=== PATIENT | female | born 1955 | race Caucasian/White ===

== ENCOUNTER 2017-02-06 06:03 | Inpatient (IN) | payer OTHER ==
--- NOTE | 2017-02-01 11:48 | HP ---
PREOPERATIVE HISTORY AND PHYSICAL: DATE OF ADMISSION/SURGERY: 02/06/17 DATE OF OFFICE VISIT/ENCOUNTER: 01/27/17 ATTENDING PHYSICIAN: Roberto Mansfield MD (DICTATED BY MEHREEN CR) PRIMARY CARE PROVIDER: MATT Armstrong PROCEDURE: Left total knee arthroplasty. CHIEF COMPLAINT: Left knee pain. HISTORY OF PRESENT ILLNESS: This is a 61-year-old female with longstanding complaints of left knee pain. X-rays have revealed tricompartmental osteoarthritis. The patient has failed conservative treatment including physical therapy, cortisone injections, and viscosupplementation. After evaluation and recommendations from Dr. Mansfield, the patient has consented to proceed with surgical intervention at this time in the form of a left total knee arthroplasty. PAST MEDICAL HISTORY: 1. Mild COPD. 2. Hypertension. 3. Sleep apnea, the patient does not wear CPAP. 4. Depression. 5. Irritable bowel syndrome. 6. Osteoarthritis. 7. Acid reflux secondary to hiatal hernia. PAST SURGICAL HISTORY: 1. Appendectomy. 2. Left knee arthroscopy. CURRENT MEDICATIONS: 1. Breo. 2. Lexapro. 3. Lisinopril 20 mg daily. 4. Meloxicam 15 mg daily. 5. Pantoprazole sodium 40 mg daily. 6. Vitamin D3 Super Strength 2000 units 1 tab daily. ALLERGIES: PENICILLIN causes hives. FAMILY MEDICAL HISTORY: Cardiac disease and colon cancer. SOCIAL HISTORY: The patient lives alone. She works at [employer] in [place]. She is a former smoker. She quit in October 2015, prior to that she smoked for 45 years a pack and a half per day. She denies recreational drug use. She does admit to alcohol use on rare occasion. REVIEW OF SYSTEMS: General: Negative for fevers, chills, or night sweats. No known anesthesia problems in the past. HEENT: Negative for headache, lightheadedness, or syncopal episodes. Integumentary: Negative for abrasions, lesions, or open wounds. Cardiothoracic: Positive for hypertension, negative for chest pain, palpitations, or edema. Pulmonary: Positive for COPD and shortness of breath with exertion. GI: Positive for diarrhea related to irritable bowel syndrome and acid reflux. : Negative for nocturia, urinary frequency, urgency, history of UTIs, or kidney problems. Musculoskeletal: Positive for current complaint. Negative for chronic or intermittent back pain or history of fractures. Neurological: Positive for depression. Negative for paresthesias, numbness, history of seizures, stroke, or epilepsy. Endocrine: Negative for diabetes or thyroid issues. Hematologic: Negative for easy bruising, anemia, excessive bleeding, or history of DVT. Infectious Disease: Negative for history of MRSA, hepatitis C, or HIV. PHYSICAL EXAMINATION GENERAL: Well-developed, well-nourished, 61-year-old female in no acute distress. VITAL SIGNS: Height 5 feet 3 inches, weight 225 pounds, pulse rate 82, blood pressure 130/82. HEENT: Normocephalic, atraumatic. Pupils are equal, round, and reactive to light and accommodation. Extraocular movements are intact. NECK: Supple. No palpable lymph nodes. Throat is clear. PULMONARY: Lungs are clear to auscultation bilaterally. No wheezes, rales, or rhonchi. CARDIOTHORACIC: Regular rate and rhythm. S1, S2. No murmurs, rubs, or gallops. No edema. ABDOMEN: Positive bowel sounds. Soft, nontender. NEUROLOGIC: Alert and oriented x3. Cranial nerves II through XII are intact. Sensation is intact to light touch. PERIPHERAL VASCULAR: 2+ radial and ulnar pulses. 2+ dorsalis pedis and posterior tibial pulses. MUSCULOSKELETAL: On exam of the left knee, there is a trace joint effusion present, tenderness to palpation at medial and lateral joint lines. Fairly good range of motion. The patient is lacking approximately 5 to 10 degrees of extension and has increased pain past 100 degrees of flexion. There is slight laxity with varus valgus stress typical of osteoarthritis. Stable Laura's and posterior drawer good strength with flexion and extension, and neurovascular function is intact. IMAGING STUDIES: X-rays of the left knee showed tricompartmental osteoarthritic changes with osteophytes and varus deformity. IMPRESSION: Left knee osteoarthritis. PLAN: The patient is scheduled to undergo a left total knee arthroplasty with Dr. Mansfield on 02/06/17. Risks and benefits of surgery were reviewed and the patient consented to proceed. She will return to the office 14 days postop for followup. The patient has received clearance from her primary care provider , MATT Armstrong. Prescriptions for Percocet for postoperative pain, Coumadin for DVT prophylaxis postoperatively, and Colace for constipation were e -scribed to the patient's pharmacy. [place], MEHREEN [id number]/[facility] #: [id number] [facility]PITALQuan
[~2017-02-06 06:03] MED LIST: Buffered Lidocaine 1% SYRIN* 3 ML/SYR SYRINGE INTRADERM ONE; Dexamethasone IV* 4 MG/ML 1 ML (4 MG) IV SLOW PU ONE; Famotidine IV* 10 MG/ML 2 ML (20 mg) IV ONE
[2017-02-06] MEDS ORDERED: Dexamethasone IV* 4 MG/ML 1 ML (4 MG) ONE (06:05)
[2017-02-06] MEDS ORDERED: Famotidine IV* 10 MG/ML 2 ML (20 mg) ONE (06:05)
[2017-02-06] MEDS ORDERED: Clindamycin 900 MG IVPREMIX(* 900 MG/50 ML SDV IV ONE (06:05)
[2017-02-06] MEDS ORDERED: Bupivacaine 0.5% SDV PF* 30 ML VIAL ONE (06:45)
[2017-02-06] MEDS ORDERED: Dexmedetomidine* 200 MCG/2 ML 2 ML VIAL ONE ×2 (06:45→07:06)
[2017-02-06] MEDS ORDERED: HYDROmorphone* 1 MG/ML 1 ML SYR ONE ×3 (06:46→08:51)
[2017-02-06] MEDS ORDERED: fentaNYL* 50 MCG/ML 2 ML VIAL (100 MCG VIAL) ONE ×3 (06:47→11:51)
[2017-02-06] MEDS ORDERED: Midazolam* 1 MG/ML 5 ML VIAL (5 MG) ONE (06:47)
[2017-02-06] MEDS ORDERED: Morphine PF AMP (0.5MG/ML)* 5 MG/10 ML AMP ONE (06:47)
[2017-02-06] MEDS ORDERED: Propofol* 10 MG/ML 20 ML BTL IV PUSH ONE (07:06)
[2017-02-06] MEDS ORDERED: DiMENhydriNATE IV* 50 MG/ML VIAL IV PUSH PRN ×2 (07:15→10:00)
[2017-02-06] MEDS ORDERED: fentaNYL* 50 MCG/ML 2 ML VIAL (100 MCG VIAL) IV PRN (07:15)
[2017-02-06] MEDS ORDERED: PROCHLORPERAZINE INJ 5 MG/ML 2 ML VIAL IV PRN ×2 (07:15→10:00)
[2017-02-06] MEDS ORDERED: Ondansetron INJ* 2 MG/ML VIAL IV PRN ×2 (07:15→10:00)
[2017-02-06] MEDS ORDERED: Meperidine SYRINGE* 50 MG/ML ONE (08:30)
[2017-02-06] MEDS ORDERED: Scopolomine PATCH Remove* 1 NOTE MISC PATCH OFF PRN (10:00)
[2017-02-06] MEDS ORDERED: diPHENhydraMINE IV* 50 MG/ML 1 ml VIAL (BENADRYL) IV PRN ×2 (10:00→10:08)
[2017-02-06] MEDS ORDERED: Nalbuphine* 20 MG/ML 1 ML VIAL IV PRN (10:00)
[2017-02-06] MEDS ORDERED: Scopolamine 1.5 mg* PATCH TRANSDERM PRN (10:00)
[2017-02-06] MEDS ORDERED: Naloxone* 0.4 MG/ML 1 ML VIAL IV PRN (10:00)
[2017-02-06] MEDS ORDERED: Morphine INJ* 2 MG/ML 1 ML SYRINGE IV PRN (10:08)
[2017-02-06] MEDS ORDERED: Magnesium Hydroxide LIQ* 30 ML UDC PO PRN (10:08)
[2017-02-06] MEDS ORDERED: oxyCODONE TAB* 5 MG TAB PO PRN (10:08)
[2017-02-06] MEDS ORDERED: Acetaminophen TAB* 325 MG PO PRN (10:08)
--- NOTE | 2017-02-06 11:09 | RAD ---
Indication: Left total knee replacement. 2 views of left knee demonstrates left knee replacement in satisfactory position. Soft tissue swelling and multiple surgical clips are noted. IMPRESSION: Bipolar left knee replacement in satisfactory position.
[2017-02-06] MEDS: Clindamycin 600 MG IVPREMIX(* 600 MG/50 ML SDV IV SCH (16:16)
[2017-02-06] MEDS ORDERED: Warfarin TAB(*) 10 MG PO ONE (17:00)
[2017-02-06] MEDS: oxyCODONE/Acetamin 5/325 MG* TAB PO PRN ×2 (18:22→21:24)
[2017-02-06] MEDS: FORMOTEROL INH SCH ×2 (19:34→22:17)
[2017-02-06] MEDS: MOMETASONE INH SCH ×2 (19:34→22:17)
[2017-02-06] MEDS: Docusate CAP* 100 MG PO SCH (21:24)
[2017-02-07] MEDS: Clindamycin 600 MG IVPREMIX(* 600 MG/50 ML SDV IV SCH ×2 (00:07→07:50)
[2017-02-07] MEDS: oxyCODONE/Acetamin 5/325 MG* TAB PO PRN ×5 (00:21→22:13)
--- NOTE | 2017-02-07 01:16 | OP ---
DATE OF OPERATION: 02/06/17 - ROOM #341 DATE OF : 55 SURGEON: Roberto Mansfield MD COOK JELLY: DESTIN Tabor ANESTHESIOLOGIST: Arnel Ibarra MD ANESTHESIA: Spinal/regional/sedation. PRE-OP DIAGNOSIS: Osteoarthritis, left knee. POST-OP DIAGNOSIS: Osteoarthritis, left knee. OPERATIVE PROCEDURE: Left total knee arthroplasty. ESTIMATED BLOOD LOSS: 100 cc. COMPLICATIONS: None. HARDWARE: Luis Persona #6 narrow femur, E tibia, 13-mm polyethylene, 32-mm all-polyethylene patellar button. INDICATIONS: Ms. Sinclair is a 61-year-old female who has had several years worth of progressive left knee pain. She had been treated conservatively with anti- inflammatories, physical therapy, and various injections but the knee has become more and more painful and limiting for her. She has significant arthritic changes by x-ray and I discussed with her that a total knee arthroplasty should work well to decrease her pain and improve her function. Risks of surgery such as infection, scar formation, stiffness, DVT, pulmonary embolism, hardware failure, and the need for revision surgery were some of the risks discussed. She had been declared medically optimized and wished to proceed. DESCRIPTION OF PROCEDURE: The patient had a block placed in the holding area and then was brought to the OR. Spinal anaesthesia was introduced and Bailey catheter was placed. Tourniquet was placed over the proximal left thigh and was used during the case. Total tourniquet time would be 74 minutes. Left knee was prepped and then draped. DESTIN Tabor, was present from the very beginning to help hold the leg for placing of the tourniquet, positioning of the patient, approach, placement of the components as well as closure and the case could not have been done without her. Left knee was prepped and then draped. Esmarch was used to exsanguinate the leg and the tourniquet was raised. Midline incision was made beginning just medial to the tibial tubercle and carried about 4 cm above the superior pole of the patella. Incision was carried down through the skin and subcutaneous fat. Small bleeders encountered were ligated using electrocautery. Extensor mechanism was exposed and a sharp parapatellar arthrotomy was made. Quite a bit of clear yellowish joint fluid was encountered. Soft tissues were sharply elevated from the medial side of the tibia and the fat pad were sharply excised. Patella measured 22 mm in thickness and a nice 9 mm cut was taken. Patella was then easily subluxated laterally and the knee was flexed up. Nice exposure of the distal femur was obtained. Step drill was used to open the femoral canal and the intramedullary guide was placed. Guide was placed and adjusted until it appeared parallel with the posterior condyles and while I tried to palpate her epicondyles with her fat, this was not really possible. Distal femoral cutting guide was then pinned into place and the intramedullary guide was removed. It appeared a nice cut would be taken and distal femoral cut was taken. Femur was sized and she sat nicely for a 6. Holes were drilled and a #6 cutting block was placed. With running the drill, through the superior hole, I could feel the drill in the cortex, so cutting block was moved up by 2 mm. Anterior and posterior femoral cuts followed by the chamfer cut were all taken. Attention was turned to the tibia. Step drill was used to open the tibial canal. Intramedullary guide was placed. Outrigger was assembled and adjusted until it appeared it would take 2 mm from the worn medial side. Cutting guide was pinned into place and the proximal tibial cut was taken. It appeared a nice cut was obtained, but when the spacer block was placed on top of the tibia and a drop ning was dropped , the cut was in slight valgus. Re-cutter was then placed and the tibia was recut. She was now in very slight varus, but this was much better than the valgus she was in previously. With the spacer block in; however, it appeared that her rotation on the femur was off. Specifically, with full extension, she sat fairly well but with flexion, she was very loose on the lateral side and tight on the medial side. With the knee in flexion, it was very difficult to get the trial block in to assess. Cutting block was replaced and adjusted so that I moved it up approximately 2 mm on that medial side and this seemed to be better in line with the epicondyles. Anterior femoral cut, posterior cut, and chamfer cuts were retaken. Nothing was taken from the anteromedial and posterolateral aspects of the femur. With the spacer block, she now came out better and the alignment appeared to be quite good. Tibia was sized at 5, which sat perfectly anterior to posterior and medial to lateral and the trial was pinned into place. Proximal tibia was drilled and then punched. Attention was returned to the femur. With the femoral trial, I could now obviously have some wobble and this was placed into firm external rotation and the stud holes were drilled. Spacer was just placed under the medial side and care was taken to make sure I had full contact on the anterolateral aspect of the femur and the box cut was also taken. Trial polyethylene was placed and she came out nicely into full extension, flexed well, and patella tracking appeared perfect. Patella was sized and a 32 sat very nicely. Holes were drilled and trial was snapped into place. Patellar tracking again was perfect without any evidence of instability. Trial instrumentation was removed and the implants were called for. Cement was being prepared. Tibia followed by femur and patella were all cemented into place. Excess cement was removed and cement was allowed to harden. Once the cement had hardened, she was again trialed first with the 12 and then with 13. The 13 came out nicely into full extension just had a little bit of wobble, flexed nice and smoothly as well. She was limited by her body habitus with flexion and not the components. Patella tracking was fine with all of these. Trial polyethylene was removed. The knee was again copiously pulse lavaged and searched for cement, a few small pieces were found. The 13 polyethylene was then snapped into place. She had the same wonderful motion and stability. Knee was again copiously pulse lavaged and the parapatellar arthrotomy was repaired using interrupted #1 Vicryl sutures. Tourniquet was let down. No significant bleeding was encountered. Subcutaneous tissues were reapproximated using 2-0 Vicryl. Wound was again pulse lavaged. Skin was closed using bandar. Sterile dressing and Cryo/Cuff were applied in the OR. The patient was then awaked and stable on transfer to the recovery room. [id number]/[facility] #: [id number] ANNIE
[2017-02-07] MEDS ORDERED: oxyCODONE/Acetamin 5/325 MG* TAB PO PRN (02:01)
[2017-02-07] MEDS ORDERED: Ondansetron INJ* 2 MG/ML VIAL IV PRN (02:01)
[2017-02-07 05:04] LABS: Hematocrit 32 % (35-47); Hemoglobin 10.7 g/dl (12.0-16.0)
[2017-02-07 05:10] LABS: BUN/Creatinine Ratio 15.8 (8-20); EGFR African American 71.7 (>60); EGFR Non-African American 55.7 (>60)
--- NOTE | 2017-02-07 08:04 | PN ---
Progress Note - Progress Note SOAP: Subjective: [Pt was seen sitting up in bed today. She states that late last night the block wore off and that she was unable to sleep due to pain. She states that the pain is an 8 out of 10 at its worst, she states that with percocet the pain is more of a 4 out of 10 and is manageable. She denies any nausea, vomiting, chest pain , calf pain, shortness of breath. Objective: [General: Pt is awake, alert and oriented. No actue distress. Appropriate mood and affect. MSK: LLE: Inspection of the LLE reveals dressing is clean, dry and intact with cryotherapy unit applied. Pt has full doriflexion and planterflexion of the left foot. DP and PT pulses are 2+. Sensation is intact to light touch distal to incision. ] Vital Signs Temp 98.3 F 02/07/17 07:39 Pulse 82 02/07/17 07:39 Resp 18 02/07/17 07:39 BP 99/38 02/07/17 07:39 Pulse Ox 95 02/07/17 07:39 Intake & Output 02/06/17 02/07/17 02/07/17 18:59 06:59 18:59 Intake Total 3395 2165 Output Total 1750 1550 Balance 1645 615 Intake: IV Fluids 2650 1740 900MG CLINDAMYCIN 50 CLINDAMYCIN 50 LR 2600 1690 Oral 745 425 Output: Bailey 1750 1550 Other: # Bowel Movements 0 Hgb 10.7 g/dl (12.0-16.0) L 02/07/17 04:23 Hct 32 % (35-47) L 02/07/17 04:23 INR (Anticoag Therapy) 0.98 (0.89-1.11) 02/07/17 04:23 Sodium 134 mmol/L (133-145) 02/07/17 04:23 Potassium 4.0 mmol/L (3.5-5.0) 02/07/17 04:23 Chloride 99 mmol/L (101-111) L 02/07/17 04:23 Carbon Dioxide 28 mmol/L (22-32) 02/07/17 04:23 Anion Gap 7 mmol/L (2-11) 02/07/17 04:23 BUN 16 mg/dL (6-24) 02/07/17 04:23 Creatinine 1.01 mg/dL (0.51-0.95) H 02/07/17 04:23 Est GFR ( Amer) 71.7 (>60) 02/07/17 04:23 Est GFR (Non-Af Amer) 55.7 (>60) 02/07/17 04:23 BUN/Creatinine Ratio 15.8 (8-20) 02/07/17 04:23 Glucose 113 mg/dL (70-100) H 02/07/17 04:23 Calcium 9.0 mg/dL (8.6-10.3) 02/07/17 04:23 Assessment: [POD1 LTKA ] Plan: [Dose of Warfarin 8mg tonight. To stay ahead of the pain the pt was advised to utilize the oxycodone as needed to help with pain. PT/OT today Continue the Abx for 24 hours. ]
[2017-02-07] MEDS ORDERED: FLUTICASONE FUROATE VILANTEROL INH SCH (09:00)
[2017-02-07] MEDS ORDERED: [UNRECOGNIZED DRUG - OTHER] INH SCH (09:00)
[2017-02-07] MEDS: Cholecalciferol TAB* 1000 UNITS PO SCH (09:07)
[2017-02-07] MEDS: Heparin VIAL(*) 5000 UNITS/ML VIAL (FIVE THOUSAND) SUBCUT SCH ×2 (09:08→20:20)
[2017-02-07] MEDS: CMCS: Pantoprazole TAB (NF) 40 MG TAB PO SCH (09:12)
[2017-02-07] MEDS: CMCS:Escitalopram (NF) 10 MG TAB PO SCH (09:13)
[2017-02-07] MEDS: Docusate CAP* 100 MG PO SCH ×2 (09:49→19:29)
[2017-02-07] MEDS: MOMETASONE INH SCH ×2 (09:50→19:52)
[2017-02-07] MEDS: Lisinopril TAB* 10 MG PO SCH (09:50)
[2017-02-07] MEDS: FORMOTEROL INH SCH ×2 (09:50→19:52)
[2017-02-07] MEDS: oxyCODONE TAB* 5 MG TAB PO PRN ×3 (13:10→20:20)
[2017-02-07] MEDS ORDERED: Warfarin TAB(*) 4 MG PO ONE (17:00)
[2017-02-08] MEDS: oxyCODONE TAB* 5 MG TAB PO PRN ×5 (00:40→21:43)
[2017-02-08] MEDS: oxyCODONE/Acetamin 5/325 MG* TAB PO PRN ×4 (02:12→17:32)
[2017-02-08 06:00] LABS: Hematocrit 31 % (35-47); Hemoglobin 9.9 g/dl (12.0-16.0)
--- NOTE | 2017-02-08 08:41 | PN ---
Progress Note - Progress Note SOAP: Subjective: Pt states she is doing well her pain is controlled. She is doing well with PT. She reports continues calf pain. She denies CP, F/C, SOB, or N/T. VSS overnight Objective: PE- 61 y/o F in NAD lying comfortably in bed LLE- dressing changes, well healing surgical incision, bandar intact, no erythema, purulent discharge or sign of infection. small hematoma on lateral aspect of knee, able to DF/PF ankle, calf soft tender to palpation. +2 DP pulse , sensation intact Vital Signs Temp Pulse Resp BP Pulse Ox 98.2 F 90 18 117/48 94 02/08/17 07:30 02/08/17 07:30 02/08/17 08:00 02/08/17 07:30 02/08/17 08:00 Laboratory Results - last 24 hr 02/08/17 02/08/17 05:31 05:31 Hgb 9.9 L Hct 31 L INR (Anticoag Therapy) 1.70 H Assessment: POD 2 LTKA Plan: Doppler LLE to R/O DVT Warfarin 8 mg tonight. Cont pain management. WBAT LLE- cont PT/OT Possible DC home tomorrow with VNS
[2017-02-08] MEDS: FORMOTEROL INH SCH ×2 (08:52→20:49)
[2017-02-08] MEDS: MOMETASONE INH SCH ×2 (08:52→20:49)
[2017-02-08] MEDS: Docusate CAP* 100 MG PO SCH ×2 (09:00→21:43)
[2017-02-08] MEDS: Lisinopril TAB* 10 MG PO SCH (09:02)
[2017-02-08] MEDS: CMCS:Escitalopram (NF) 10 MG TAB PO SCH (09:02)
[2017-02-08] MEDS: Cholecalciferol TAB* 1000 UNITS PO SCH (09:03)
[2017-02-08] MEDS: Heparin VIAL(*) 5000 UNITS/ML VIAL (FIVE THOUSAND) SUBCUT SCH (09:03)
[2017-02-08] MEDS: CMCS: Pantoprazole TAB (NF) 40 MG TAB PO SCH (09:04)
--- NOTE | 2017-02-08 10:36 | RAD ---
HISTORY: Left lower extremity pain and edema COMPARISONS: None relevant TECHNIQUE: Multiple transverse and longitudinal ultrasound images were obtained of the left lower extremity from the level of the common femoral vein inferiorly through to the infrapopliteal veins using grayscale, color Doppler, and spectral Doppler imaging with and without compression and with augmentation. Comparison images were obtained of the contralateral common femoral vein. FINDINGS: The study is limited by patient body habitus. VEINS: The venous system of the left lower extremity is compressible throughout its course, with normal flow on color Doppler imaging and normal response to augmentation on spectral Doppler imaging. SOFT TISSUES: Unremarkable. OTHER FINDINGS: None. IMPRESSION: NO LEFT LOWER EXTREMITY DEEP VEIN THROMBOSIS
[2017-02-08] MEDS ORDERED: Warfarin TAB(*) 4 MG PO ONE (17:00)
[2017-02-08] MEDS ORDERED: Warfarin TAB(*) 3 MG PO ONE (18:00)
[2017-02-09] MEDS: oxyCODONE TAB* 5 MG TAB PO PRN ×2 (02:24→08:04)
[2017-02-09] MEDS: oxyCODONE/Acetamin 5/325 MG* TAB PO PRN ×2 (05:26→10:26)
[2017-02-09 05:31] LABS: Hematocrit 27 % (35-47); Hemoglobin 8.8 g/dl (12.0-16.0)
[2017-02-09 07:47] VITALS: BP 99/48
[2017-02-09] MEDS: Lisinopril TAB* 10 MG PO SCH (07:48)
[2017-02-09] MEDS: CMCS:Escitalopram (NF) 10 MG TAB PO SCH (08:03)
[2017-02-09] MEDS: Cholecalciferol TAB* 1000 UNITS PO SCH (08:03)
[2017-02-09] MEDS: FORMOTEROL INH SCH (08:04)
[2017-02-09] MEDS: Docusate CAP* 100 MG PO SCH (08:04)
[2017-02-09] MEDS: MOMETASONE INH SCH (08:04)
[2017-02-09] MEDS: CMCS: Pantoprazole TAB (NF) 40 MG TAB PO SCH (08:05)
--- NOTE | 2017-02-09 08:13 | PN ---
Progress Note - Progress Note SOAP: Subjective: 61 y/o female s/p left total knee replacement 02/06/2017. Patient reports feeling well, she denies SOB, chest pain. DVT study neg. VSS overnight, one dip of O2, however recheck WNLs. afebrile. Objective: [General- Well appearing, NAD AOx3 MSK- Incision D/C/I, no drainage noted, bandar in place. PT pulses 2+ b/l, negative homans b/l, + DF/PF equal bilaterally. Moderate ecchymosis around knee. ] Vital Signs Temp 98.3 F 02/09/17 07:06 Pulse 78 02/09/17 07:06 Resp 16 02/09/17 08:04 BP 99/48 02/09/17 07:46 Pulse Ox 100 02/09/17 07:46 Intake & Output 02/08/17 02/09/17 02/09/17 18:59 06:59 18:59 Intake Total 820 1500 Output Total 300 400 Balance 520 1100 Intake: Oral 820 1500 Output: Urine 300 400 Laboratory Results - last 24 hr 02/09/17 02/09/17 05:19 05:19 Hgb 8.8 L Hct 27 L INR (Anticoag Therapy) 2.27 H Assessment: 61 y/o female s/p left total knee replacement 02/06/2017. Plan: - D/C to home today - Follow up with Shyla within 3-4 weeks - Coumadin for DVT prophylaxis - Continue PT/ OT Active Medications Generic Name Dose Route Start Last Admin Trade Name Freq PRN Reason Stop Dose Admin Acetaminophen 650 mg 02/06/17 10:08 Tylenol Tab* PO Q4H PRN FEVER/PAIN Cholecalciferol 5,000 units 02/07/17 09:00 02/09/17 08:03 Vitamin D Tab* PO 5,000 units DAILY MOLINA Administration Diphenhydramine HCl 25 mg 02/06/17 10:08 Benadryl Iv* IV Q6H PRN ITCHING Docusate Sodium 100 mg 02/06/17 21:00 02/09/17 08:04 Colace Cap* PO 100 mg BID MOLINA Administration Escitalopram Oxalate 40 mg 02/07/17 09:00 02/09/17 08:03 Lexapro (Nf) PO 40 mg DAILY MOLINA Administration Lactated Ringer's 1,000 mls @ 100 mls/hr 02/06/17 12:00 02/06/17 23:01 Lactated Ringers 1000 Ml Bag* IV 100 mls/hr PER RATE MOLINA Administration Lisinopril 20 mg 02/07/17 09:00 02/09/17 07:48 Prinivil Tab* PO Not Given DAILY MOLINA Magnesium Hydroxide 30 ml 02/06/17 10:08 Milk Of Magnesia Liq* PO Q6H PRN constipation Mometasone Furoate/Formoterol Fumar 2 puff 02/06/17 21:00 02/09/17 08:04 Dulera 200/5 Mdi* INH 2 puff BID MOLINA Administration Morphine Sulfate 2 mg 02/06/17 10:08 Morphine Inj (Syringe)* IV Q2H PRN PAIN Ondansetron HCl 4 mg 02/07/17 02:01 02/08/17 11:33 Zofran Inj* IV 4 mg Q6H PRN Administration nausea Oxycodone HCl 10 mg 02/07/17 08:05 02/09/17 08:04 Roxycodone Tab* PO 10 mg Q4H PRN Administration PAIN Oxycodone/Acetaminophen 1 tab 02/07/17 02:01 Percocet 5/325 Tab* PO Q3H PRN PAIN - MODERATE Oxycodone/Acetaminophen 2 tab 02/06/17 10:08 02/09/17 05:26 Percocet 5/325 Tab* PO 2 tab Q4H PRN Administration PAIN Pantoprazole Sodium 20 mg 02/07/17 09:00 02/09/17 08:05 Protonix Tab (Nf) PO 20 mg DAILY MOLINA Administration Pharmacy Profile Note 1 note 02/06/17 10:00 Scopolomine Patch Remove* PATCH OFF 02/09/17 10:01 .AFTER 72 HOURS PRN nausea Pharmacy Profile Note 1 note 02/08/17 18:00 02/08/17 17:29 Coumadin Daily Reminder* FOLLOW UP 1 note 1700 MOLINA Administration
--- NOTE | 2017-02-09 22:49 | DS ---
DISCHARGE SUMMARY: DATE OF ADMISSION: 02/06/17 DATE OF DISCHARGE: 02/09/17 ATTENDING SURGEON: Roberto Mansfield MD (DICTATED BY MEHREEN BURNETT) CHIEF COMPLAINT: 1. Left knee osteoarthritis. 2. Mild chronic obstructive pulmonary disease. 3. Hypertension. 4. Sleep apnea. 5. Depression. 6. Irritable bowel syndrome. 7. Osteoarthritis. 8. Acid reflux secondary to hiatal hernia. DISCHARGE DIAGNOSES: 1. Status post left total knee arthroplasty. 2. Mild chronic obstructive pulmonary disease. 3. Hypertension. 4. Mild sleep apnea. 5. Depression. 6. Irritable bowel syndrome. 7. Osteoarthritis. 8. Acid reflux secondary to hiatal hernia. PROCEDURE: Left total knee arthroplasty. CONSULTATIONS: 1. Physical Therapy. 2. Occupational Therapy. BRIEF HISTORY: Ms. Sinclair is a very pleasant 61-year-old female with a longstanding history of osteoarthritis in the left knee, who failed conservative treatment and elected to undergo a left total knee arthroplasty on 02/06/[address] Mansfield. HOSPITAL COURSE: Ms. Sinclair was admitted to [facility], on 02/06/17 , where she underwent a left total knee arthroplasty. Postoperatively, she recovered on the surgical short stay unit. On postoperative day 2, her Bailey was removed and she was voiding on her own without difficulty. She was advanced to a regular diet and her pain was controlled with p.o. Percocet. She was restarted on her home medications. Her labs and vital signs remained stable. She was able to bear weight as tolerated on the left lower extremity. She advanced appropriately with physical therapy and occupational therapy. Her DVT prophylaxis was managed with Lovenox and Coumadin until she reached a therapeutic INR. By postoperative day 3, she was orthopedically and medically stable for discharge to go home with home services. PHYSICAL EXAMINATION: General: Well-appearing, in no acute distress. Alert and oriented x3. On the date of discharge, vital signs: Temperature 98.3, pulse of 78, respirations 16, blood pressure 99/48, pulse oxygenation of 100%. On examination of the left lower extremity, it demonstrated a surgical incision on the anterior aspect of the knee, which was intact with bandar intact. Minimal erythema along the incision site. Moderate ecchymosis surrounding the incision. Positive ankle dorsiflexion and plantar flexion equal bilaterally. 2 + palpable dorsalis pedis pulses. Sensation to light touch intact bilateral lower extremities. Negative Homans' sign bilaterally. LABORATORY DATA: On date of discharge, hemoglobin of 8.8 with a hematocrit of 27 and an INR of 2.27. Radiographs: Postoperative radiograph showed a left total knee arthroplasty and satisfactory replacement. DISCHARGE MEDICATIONS: 1. Cholecalciferol 500 units p.o. daily. 2. Colace 100 mg p.o. b.i.d. 3. Lexapro 40 mg p.o. daily. 4. Fluticasone furoate/vilanterol 1 puff inhalation daily. 5. Lisinopril 20 mg p.o. daily. 6. Protonix 20 mg p.o. daily. 7. Oxycodone/acetaminophen 5/325 mg p.o. daily. 8. Coumadin 2 mg 1 to 3 tablets p.o. as directed by physician at 5 p.m. CONDITION ON DISCHARGE: Stable. DISCHARGE INSTRUCTIONS: Ms. Sinclair is a very pleasant 61-year-old female, postoperative day 3 status post left total knee arthroplasty, which was uncomplicated. She is orthopedically and medically stable for discharge to go home with home services. Her labs and vital signs are stable. She will restart her home medications. She will hold her Coumadin dose tonight and will restart with 2 mg on Monday, Monday, and Monday with an INR check on . She will take Colace 3 times a day for constipation. She will follow up with Dr. Mansfield in approximately 3 to 4 weeks for incision check. She was instructed to go to the ER should she develop chest pain or shortness of breath. Should she develop fever, increasing pain or redness, she is to call the office immediately. MEHREEN BURNETT [id number]/[facility] #: [id number] ANNIE
== END 2017-02-09 10:45 | disposition home health service (06) | DRG 470 ==
LOC: AA 06:03 → SSU 10:09
PROVIDERS: ADMIT Orthopaedic Surgery; ATTEND Orthopaedic Surgery
PROC: 0SRD0J9 Replacement of Left Knee Joint with Synthetic Substitute, Cemented, Open Approach (ICD-10-PCS; principal; 2017-02-06 07:30)
DX: M17.12 Unilateral primary osteoarthritis, left knee (principal); Z68.41 Body mass index [BMI] 40.0-44.9, adult; I10 Essential (primary) hypertension; G47.33 Obstructive sleep apnea (adult) (pediatric); F41.9 Anxiety disorder, unspecified; E78.2 Mixed hyperlipidemia; J44.9 Chronic obstructive pulmonary disease, unspecified; E66.01 Morbid (severe) obesity due to excess calories; K58.9 Irritable bowel syndrome, unspecified; K21.9 Gastro-esophageal reflux disease without esophagitis; K44.9 Diaphragmatic hernia without obstruction or gangrene; F32.9 Major depressive disorder, single episode, unspecified; Z88.0 Allergy status to penicillin; Z80.0 Family history of malignant neoplasm of digestive organs; Z82.49 Family history of ischemic heart disease and other diseases of the circulatory system; Z87.891 Personal history of nicotine dependence
CPT/HCPCS: 36415; 80048; 85014; 85018; 85610; 88305; 88311; 94640; 94760; A9270-GY; J1100; J1170; J1644; J2250; J2405; J2704; J3010

== ENCOUNTER 2018-10-22 08:19 | Inpatient (IN) | payer OTHER ==
--- NOTE | 2018-10-19 15:59 | HP ---
H&P (Free Text) History and Physical: [facility] SOLOMON DUNBAR M.D. [address] [place] [phone] Date of Visit: October 17, 2018 Patient Name: Kaelyn Sinclair : 1955 Gender: female Age: 63 years Primary Care Physician: Maribel Garibay Reason for Visit: H and P for Right TKR, 10/22/2018 HPI: Ms. Sinclair is a very pleasant 63 year old female known to Dr. Israel practice after undergoing a Left total knee replacement, uncomplicated, in 02/2017. The patient since has developed pain in her right knee which was not helped with conservative measures such as NSAIDs, therapy, or rest, and has elected to undergo a right total knee arthroplasty with Dr. Dunbar on 10/22/2018. She has been cleared by her primary physician. Meds Prior to Visit: Symbicort 160-4.5 mcg/Act 2 puff twice a day Spiriva Respimat 2.5 mcg/Act 2 puffs every day Vitamin D3 Super Strength 2000 Unit 1 by mouth every day Lisinopril 20 mg 1 by mouth every day Citalopram Hydrobromide 40 mg take one tablet by mouth every day Trazodone HCL 50 mg take 1- 2 tablets by mouth AT bedtime Allergies: Penicillin Aleve Problem List: Disorder of shoulder Disorder of bursa of shoulder region Enthesopathy of knee Arthroplasty of knee Meralgia paresthetica of left leg Bicipital tenosynovitis Localized, primary osteoarthritis Sprain of right rotator cuff capsule, subsequent encounter Degenerative joint disease of shoulder region Joint derangement Strain of rotator cuff capsule Date: 10/17/2018 Was the patient queried about smoking behavior? Yes No Does the patient currently smoke? Smoking: Patient is a former smoker - Quit 10/2015. Denies ETOH, tobacco use. Lives alone. Family Medical History: Colon Cancer, heart disease Review of Systems: Negative for chest pain, shortness of breath, GI symptoms, urinary complaints, headache, seizure, stroke, difficulty with wound healing, blood clots, bleeding disorders, thyroid disease, DM, other aches/ pains, fever, chills, weight loss, weight gain, abdominal pains, or lightheadedness. Positive for knee pain. No difficulty with anesthesia. Vitals: Ht: 63" Wt: 241lb BP: 130/76 Resp: 18 Pain Level: 4 BMI: 42.7 EXAM: General- well appearing, NAD, alert and oriented HEENT- normocephalic, atraumatic, trachea midline. Lungs- clear to ausculation bilaterally, no C/R/W Cardiac- RRR, no M.G.R Abdomen- Soft, non-tender, non-distended, no CVA tenderness b/l MSK- R knee- ROM 3-130, tender to palpation over lateral and medial joint lines , worse over medial, mild effusion noted, + crepitus with motions, no instability with valgus or varus stressing. Vascular- PT pulses 2+ b/l Neuro- SITLT b/l LE distal to knees. + DF/PF ASSESSMENT: Right knee endstage osteoarthritis PLAN: 1) Replacement planned 10/22/2018 2) Follow up 1 month post-op 3) Possible rehabilitation post-op 4) Cleared by PCP, labs WNL's 5) Reviewed risks and benefits 6) Shoulder steroid injection at first pre-op 7) post-op medications given at visit
[~2018-10-22 08:19] MED LIST changes: +Buffered Lidocaine 1% SYRIN* 1 ML/SYRINGE INTRADERM ONE; -Buffered Lidocaine 1% SYRIN* 3 ML/SYR SYRINGE INTRADERM ONE; +Lactated Ringers 1000 ML Bag* 1,000 ML IV SCH
--- OUTSIDE RECORDS SUMMARY | 2018-10-22 08:24 | XMS REPORT | Continuity of Care Document ---
:1955 External Reference #:[id number] Author Name Sammy Ley Care Team Providers Name Role Phone Emily Mcknight F.N.P. Primary Care Physician Unavailable Payers Type Date Identification Numbers Payment Provider Subscriber Policy Number: [id number] [employer] Andrew Sinclair Group Number: [id number] [address] PayID: [id number] [place] [id number] Advance Directives Description No Information Available Problems Date Description Provider Status Onset: 06/26/2015 Strain of rotator cuff capsule Roberto Mansfield M.D. Active Onset: 06/26/2015 Joint derangement Roberto Mansfield M.D. Active Onset: 06/26/2015 Degenerative joint disease of Roberto Mansfield M.D. Active shoulder region Onset: 07/24/2015 Sprain of right rotator cuff capsule, MAYRA Bowen Active subsequent encounter Onset: 01/20/2016 Localized, primary osteoarthritis Roberto Mansfield M.D. Active Onset: 11/09/2016 Bicipital tenosynovitis Roberto Mansfield M.D. Active Onset: 11/09/2016 Meralgia paresthetica of left leg Roberto Mansfield M.D. Active Onset: 07/12/2017 Disorder of shoulder Roberto Mansfield M.D. Active Onset: 06/07/2017 Disorder of bursa of shoulder region MEHREEN Thompson Active Onset: 06/07/2017 Enthesopathy of knee Codie Wellcally PA Active Onset: 03/01/2017 Arthroplasty of knee Codie Walsh PA Active Family History Date Family Member(s) Problem(s) Comments General Heart Disease General Cancer Siblings 2 Social History Type Date Description Comments Sex Unknown Marital Status Single Lives With Alone Occupation Retired Accounting ETOH Use Denies alcohol use Tobacco Use Start: Unknown End: Patient is a former smoker Quit 10/2015 Unknown Recreational Drug Use Denies Drug Use Smoking Status Reviewed: 10/17/18 Patient is a former smoker Quit 10/2015 Exercise Type/Frequency Does not exercise Allergies, Adverse Reactions, Alerts Date Description Reaction Status Severity Comments 06/24/2015 Penicillin Active 10/10/2018 Love Mcallister Active Moderate Medications Medication Date Status Form Strength Qnty SIG Indications Ordering Provider Oxycodone HCL 10/17 Active Capsules 5mg 60cap one to two M104.18 s tablets every Shyla, 4-6 hours as M.D. needed for pain Colace 10/17 Active Capsules 100mg 60cap one tablet M104.18 s twice daily Shyla, post-operativ M.D. hyacinth Coumadin 10/17 Active Tablets 2mg 60tab 1-3 tablets M104.18 s orally as Shyla, prescribed M.D. post-operativ hyacinth at 5pm Symbicort 10/09 Active Aerosol 160-4.5mc 2 puff twice g/Act a day Spiriva Respimat 10/09 Active Aerosol 2.5mcg/Ac 2 puffs every Unknown t day Vitamin D3 Super Active Tablets 2000Unit 1 by mouth Unknown Strength /0000 every day Lisinopril Active Tablets 20mg 1 by mouth Unknown /0000 every day Citalopram Active Tablets 40mg Take One Unknown Hydrobromide /0000 Tablet By Mouth Every Day Trazodone HCL Active Tablets 50mg Take 1- 2 Unknown /0000 Tablets By Mouth AT Bedtime Percocet 01/27 Hx Tablets 5-325mg 60tab 1 -2 tabs by s mouth every 6 Shyla, - hours as M.D. 10/09 needed pain Coumadin 01/27 Hx Tablets 2mg 45tab take 1-3 tabs s at dinnertime Shyla, - as directed M.D. 07/13 by vns - not take this medication prior to surgery Colace 01/27 Hx Capsules 100mg 90cap 1 tab by s mouth up to Shyla, - three times a M.D. 09/04 day as needed constipation Meloxicam 09/02 Hx Tablets 15mg 30tab 1 tab po s daily Kamala Mansfield.DGisele 09/04 Meloxicam 06/26 Hx Tablets 15mg 30tab take one s tablet by Shyla, - mouth every M.D. 11/11 day as needed /2015 Prednisone Hx Tablets 20mg 20mg daily Unknown /0000 - 05/26 Ergocalciferol Hx Capsules [id number] 1 tab by Unknown /0000 mouth every - week 05/26 Cyclobenzaprine Hx Tablets 5mg 1 tablet by Unknown HCL /0000 mouth three - times a day 05/26 as needed /2014 Percocet Hx Tablets 5-325mg 1-2 by mouth Unknown /0000 every 4 to 6 - hours as 05/26 needed pain Chantix Hx Tablets 1mg 1 tab by Unknown Continuing Month /0000 mouth twice a Jose - day x 11 Escitalopram Hx Tablets 20mg 1 by mouth Unknown Oxalate /0000 every day - 01/08 Chantix 00 Hx Tablets 1mg take one Unknown /0000 tablet by - mouth twice a /2016 Pantoprazole Hx Tablets 40mg 1 by mouth Unknown Sodium /0000 DR every day - 10/09 Lexapro 00 Hx Unknown /0000 - 06/06 Mobic 00/00 Hx Unknown /0000 - 07/13 Medications Administered in Office Medication Date Status Form Strength Qnty SIG Indications Ordering Provider Depomedrol Administered Injection Roberto 40MG Kenneth Mansfield M.D. Depomedrol Administered Injection Roberto 40MG 017 Nicole Mansfield Celestone 3 Administered Injection Roberto mg and 3mg Kenneth Mansfield M.D. Hyaluron Or Administered Injection Lissa Derivative,Or yris Riojas,For ANP-C Intra-Articul ar Inj Per Dose Hyaluron Or Administered Injection Lissa Derivative,Or 016 yris Graves,For ANP-C Intra-Articul ar Inj Per Dose Hyaluron Or Administered Injection Lissa Derivative,Or 016 yris Graves,For ANP-C Intra-Articul ar Inj Per Dose Hyaluron Or Administered Injection Lissa Derivative,Or 016 yris Graves,For ANP-C Intra-Articul ar Inj Per Dose Hyaluron Or Administered Injection Jessie Derivative,Or 016 NEYDA Teresa thovisc,For Intra-Articul ar Inj Per Dose Hyaluron Or Administered Injection Jessie Derivative,Or 016 NEYDA Teresa thovisc,For Intra-Articul ar Inj Per Dose Depomedrol Administered Injection Lissa 80MG 015 RILEY Graves Immunizations Description No Information Available Vital Signs Date Vital Result Comment 10/17/2018 2:59pm Height 63 inches 5'3" Weight 241.00 lb BP Systolic 130 mmHg BP Diastolic 76 mmHg Respiratory Rate 18 /min Pain Level 4 BMI (Body Mass Index) 42.7 kg/m2 10/10/2018 2:51pm Height 63 inches 5'3" Weight 241.75 lb with shoes Heart Rate 60 /min regular, radial BP Systolic Sitting 145 mmHg lt arm BP Diastolic Sitting 80 mmHg lt arm BMI (Body Mass Index) 42.8 kg/m2 09/19/2018 2:01pm Height 63 inches 5'3" Weight 240.00 lb BP Systolic Sitting 126 mmHg lg BP Diastolic Sitting 80 mmHg lg Pain Level 6 BMI (Body Mass Index) 42.5 kg/m2 09/05/2018 1:04pm Height 63 inches 5'3" Heart Rate 68 /min BP Systolic 122 mmHg BP Diastolic 68 mmHg Body Temperature 97.3 F Pain Level 9 07/12/2017 3:45pm Height 63 inches 5'3" Weight 225.00 lb BP Systolic 124 mmHg BP Diastolic 74 mmHg Respiratory Rate 18 /min Pain Level 3 BMI (Body Mass Index) 39.9 kg/m2 06/07/2017 1:57pm Height 63 inches 5'3" Weight 225.00 lb BP Systolic 128 mmHg BP Diastolic 88 mmHg Respiratory Rate 20 /min Body Temperature 97.3 F Pain Level 5 BMI (Body Mass Index) 39.9 kg/m2 05/03/2017 3:42pm Height 63 inches 5'3" Weight 225.00 lb BP Systolic 128 mmHg BP Diastolic 80 mmHg Body Temperature 98.0 F Pain Level 0 BMI (Body Mass Index) 39.9 kg/m2 03/01/2017 12:53pm Height 63 inches 5'3" Weight 225.00 lb Heart Rate 80 /min BP Systolic 158 mmHg BP Diastolic 83 mmHg Body Temperature 97.9 F BMI (Body Mass Index) 39.9 kg/m2 01/27/2017 10:21am Height 63 inches 5'3" Weight 225.00 lb Heart Rate 82 /min BP Systolic 130 mmHg BP Diastolic 82 mmHg Respiratory Rate 14 /min Body Temperature 97.2 F Pain Level 4 BMI (Body Mass Index) 39.9 kg/m2 11/09/2016 4:07pm Height 63 inches 5'3" Weight 225.00 lb per pt Heart Rate 64 /min BP Systolic Sitting 128 mmHg BP Diastolic Sitting 80 mmHg Respiratory Rate 16 /min Pain Level 8 BMI (Body Mass Index) 39.9 kg/m2 05/19/2016 4:04pm Height 63 inches 5'3" Weight 225.00 lb Pain Level 6 BMI (Body Mass Index) 39.9 kg/m2 05/11/2016 8:26am Height 63 inches 5'3" Weight 225.00 lb Pain Level 0 BMI (Body Mass Index) 39.9 kg/m2 04/29/2016 2:32pm Height 63 inches 5'3" Weight 225.00 lb Pain Level 4 BMI (Body Mass Index) 39.9 kg/m2 04/21/2016 8:12am Height 63 inches 5'3" Weight 225.00 lb Respiratory Rate 18 /min Pain Level 5 BMI (Body Mass Index) 39.9 kg/m2 03/02/2016 9:26am Height 63 inches 5'3" Weight 225.00 lb Heart Rate 64 /min BP Systolic Sitting 136 mmHg BP Diastolic Sitting 72 mmHg Respiratory Rate 16 /min Pain Level 3 BMI (Body Mass Index) 39.9 kg/m2 01/20/2016 9:22am Height 63 inches 5'3" Weight 223.00 lb Heart Rate 63 /min BP Systolic 163 mmHg BP Diastolic 81 mmHg BMI (Body Mass Index) 39.5 kg/m2 11/12/2015 2:00pm Height 63 inches 5'3" Weight 213.00 lb Respiratory Rate 16 /min Pain Level 3 BMI (Body Mass Index) 37.7 kg/m2 09/02/2015 9:36am Height 63 inches 5'3" Weight 213.00 lb BMI (Body Mass Index) 37.7 kg/m2 07/24/2015 9:24am Height 63 inches 5'3" Weight 213.00 lb Respiratory Rate 18 /min Pain Level 5 BMI (Body Mass Index) 37.7 kg/m2 06/24/2015 11:41am Weight 213.00 lb Results Test Date Facility Test Result H/L Range Note Urinalysis Profile 10/12/2018 [facility] Urine Color Yellow [address] [place] [address] [phone] Urine Appearance Clear Urine Specific [place] 1.018 N 1.010-1.030 Urine pH 5.0 N 5-9 Urine Urobilinogen Negative Negative Urine Ketones Negative Negative Urine Protein Negative Negative Urine Leukocytes Negative Negative Urine Blood Negative Negative Urine Nitrite Negative Negative Urine Bilirubin Negative Negative Urine Glucose Negative Negative Inr/Protime 10/12/2018 [facility] Inr 0.97 N 0.77-1.02 [address] [place] [address] [phone] CBC Auto Diff 10/12/2018 [facility] White Blood 6.0 10^3/uL N 3.5-10.[address] [place] [address] [phone] Red Blood Count 4.51 10^6/uL N 4.00-5.40 Hemoglobin 13.0 g/dL N 12.0-16.0 Hematocrit 40 % N 35-47 Mean Corpuscular Volume 88 fL N 80-97 Mean Corpuscular Hemoglobin 29 pg N 27-31 Mean Corpuscular HGB Conc 33 g/dL N 31-36 Red Cell Distribution Width 14 % N 10.5-15 Platelet Count 204 10^3/uL N 150-450 Mean Platelet Volume 9.1 fL N 7.4-10.4 Abs Neutrophils 4.4 10^3/uL N 1.5-7.7 Abs Lymphocytes 1.2 10^3/uL N 1.0-4.8 Abs Monocytes 0.3 10^3/uL N 0-0.8 Abs Eosinophils 0.1 10^3/uL N 0-0.6 Abs Basophils 0 10^3/uL N 0-0.2 Abs Nucleated RBC 0 10^3/uL Granulocyte % 73.9 % Lymphocyte % 19.3 % Monocyte % 4.8 % Eosinophil % 1.6 % Basophil % 0.4 % Nucleated Red Blood Cells % 0.1 Type & Screen 10/12/2018 [facility] Patient Blood Type O Negative [address] [place] [address] [phone] Antibody Screen NEGATIVE Comp Metabolic Panel 10/12/2018 [facility] Sodium 140 mmol/L N 135-[address] [place] [address] [phone] Potassium 4.2 mmol/L N 3.5-5.0 Chloride 103 mmol/L N 101-111 Co2 Carbon Dioxide 30 mmol/L N 22-32 Anion Gap 7 mmol/L N 2-11 Glucose 93 mg/dL N 70-100 Blood Urea Nitrogen 15 mg/dL N 6-24 Creatinine 1.07 mg/dL High 0.51-0.95 BUN/Creatinine Ratio 14.0 N 8-20 Calcium 9.3 mg/dL N 8.6-10.3 Total Protein 6.7 g/dL N 6.4-8.9 Albumin 4.1 g/dL N 3.2-5.2 Globulin 2.6 g/dL N 2-4 Albumin/Globulin Ratio 1.6 N 1-3 Total Bilirubin 0.30 mg/dL N 0.2-1.0 Alkaline Phosphatase 80 U/L N 34-104 Alt 15 U/L N 7-52 Ast 16 U/L N 13-39 Egfr Non- 51.8 >60 Egfr 62.7 >60 1 Urine Culture And 10/12/2018 [facility] Urine SEE RESULT [address] [place] [address] [phone] Inr/Protime 03/02/2017 [facility] Inr 1.72 High 0.89- [address] [place] [address] [phone] Inr/Protime 02/27/2017 [facility] Inr 1.95 High 0.89- [address] [place] [address] [phone] Urinalysis Profile 01/27/2017 [facility] Urine Color Yellow N [address] [place] [address] [phone] Urine Appearance Cloudy N Urine Specific [place] 1.020 N 1.010-1.030 Urine pH 6.0 N 5-9 Urine Urobilinogen Negative N Negative Urine Ketones Negative N Negative Urine Protein Negative N Negative Urine Leukocytes Trace Abnormal Negative Urine Blood Negative N Negative Urine Nitrite Negative N Negative Urine Bilirubin Negative N Negative Urine Glucose Negative N Negative Urine White Blood Cell Trace(0-5/hpf) N Absent Urine Red Blood Cell Absent N Absent Urine Bacteria 1+ Abnormal Absent Urine Squamous Epithelial Cell Present Abnormal Absent CBC No Diff 01/27/2017 [facility] White Blood 6.4 10^3/uL N 3.5-10.[address] [place] [address] [phone] Red Blood Count 4.96 10^6/uL N 4.0-5.4 Hemoglobin 14.0 g/dL N 12.0-16.0 Hematocrit 43 % N 35-47 Mean Corpuscular Volume 86 fL N 80-97 Mean Corpuscular Hemoglobin 28 pg N 27-31 Mean Corpuscular HGB Conc 33 g/dL N 31-36 Red Cell Distribution Width 15 % N 10.5-15 Platelet Count 217 10^3/uL N 150-450 Mean Platelet Volume 9 um3 N 7.4-10.4 Inr/Protime 01/27/2017 [facility] Inr 0.96 N 0.89-1.[address] [place] [address] [phone] Laboratory test 01/27/2017 [facility] Partial 31.8 seconds N 26.0-36.3 [address] [place] [address] PTT [phone] Type & Screen 01/27/2017 [facility] Patient O Negative N [address] [place] [address] [phone] Antibody Screen NEGATIVE N Comp Metabolic Panel 01/27/2017 [facility] Sodium 136 mmol/L N 133-[address] [place] [address] [phone] Potassium 3.8 mmol/L N 3.5-5.0 Chloride 98 mmol/L Low 101-111 Co2 Carbon Dioxide 29 mmol/L N 22-32 Anion Gap 9 mmol/L N 2-11 Glucose 91 mg/dL N 70-100 Blood Urea Nitrogen 17 mg/dL N 6-24 Creatinine 1.16 mg/dL High 0.51-0.95 BUN/Creatinine Ratio 14.7 N 8-20 Calcium 9.5 mg/dL N 8.6-10.3 Total Protein 7.5 g/dL N 6.4-8.9 Albumin 4.4 g/dL N 3.2-5.2 Globulin 3.1 g/dL N 2-4 Albumin/Globulin Ratio 1.4 N 1-3 Total Bilirubin 0.60 mg/dL N 0.2-1.0 Alkaline Phosphatase 85 U/L N 34-104 Alt 29 U/L N 7-52 Ast 26 U/L N 13-39 Egfr Non- 47.5 N >60 Egfr 61.1 N >60 7 Urine Culture And 01/27/2017 [facility] Urine Culture SEE RESULT [address] [place] [address] [phone] 1 Because ethnic data is not always readily available, this report includes an eGFR for both -Americans and non- Americans. The National Kidney Disease Education Program (NKDEP) does not endorse the use of the MDRD equation for patients that are not between the ages of 18 and 70, are , have extremes of body size, muscle mass, or nutritional status, or are non- or non-. According to the National Kidney Foundation, irrespective of diagnosis, the stage of the disease is based on the level of kidney function: Stage Description GFR(mL/min/1.73 m(2)) 1 Kidney damage with normal or decreased GFR 90 2 Kidney damage with mild decrease in GFR 60-89 3 Moderate decrease in GFR 30-59 4 Severe decrease in GFR 15-29 5 Kidney failure <15 (or dialysis) 2 SEE RESULT BELOW Name: ANDREW SINCLAIR : [address]: Roberto Mansfield MD Acct: [id number] Unit: [id number] AGE: 63 Location: PAT Re10/12/18 SEX: F Status: REG REF SPEC: [id number] CLARICE: 10/12/18-[address]: Roberto Mansfield MD REQ: [id number] RECD: 10/12/18 STATUS: KENDAL HIGGINBOTHAM DR: Emily Mcknight POST PRODUCTION ASSISTANT _ SOURCE: URINE SPDESC: ORDERED: Urine Culture QUERIES: Urine Source: Clean Catch Procedure Result Reported Site Urine Culture Final 10/13/18- 1630 ML No Growth (<1,000 CFU/mL) * ML - Main Lab . END OF REPORT DEPARTMENT OF PATHOLOGY, [address] [place] [address] Marcus Swann M.D. Director [facility] # [id number] FAX 4 PLEASE CALL STAT RESULT TO [phone] PLEASE FAX STAT RESULTS TO 5 SD [id number] 6 SD [id number] 7 Because ethnic data is not always readily available, this report includes an eGFR for both -Americans and non- Americans. The National Kidney Disease Education Program (NKDEP) does not endorse the use of the MDRD equation for patients that are not between the ages of 18 and 70, are , have extremes of body size, muscle mass, or nutritional status, or are non- or non-. According to the National Kidney Foundation, irrespective of diagnosis, the stage of the disease is based on the level of kidney function: Stage Description GFR(mL/min/1.73 m(2)) 1 Kidney damage with normal or decreased GFR 90 2 Kidney damage with mild decrease in GFR 60-89 3 Moderate decrease in GFR 30-59 4 Severe decrease in GFR 15-29 5 Kidney failure <15 (or dialysis) 8 SEE RESULT BELOW Name: ANDREW SINCLAIR : [address]: Roberto Mansfield MD Acct: [id number] Unit: [id number] AGE: 61 Location: [facility] Re01/27/17 SEX: F Status: REG REF SPEC: [id number] CLARICE: 01/27/17-[address] [facility] [address]: Roberto Mansfield MD REQ: [id number] RECD: 01/27/17134 STATUS: COMP _ SOURCE: URINE SPDESC: ORDERED: Urine Culture COMMENTS: [id number] [id number] QUERIES: Urine Source: Clean Catch Procedure Result Reported Site Urine Culture Final 01/28/17- 1507 ML No growth of clinically significant organisms * ML - MAIN LAB (PSC1) . END OF REPORT * ML=Testing performed at Main Lab DEPARTMENT OF PATHOLOGY, [address] [place] [address] Marcus Swann M.D. Director [facility] # [id number] Procedures Date Code Description Status 07/12/2017 Inject/Drain Joint/Bursa Major W/O US Completed 07/12/201760163 Inject/Drain Joint/Bursa Major W/O US Completed 02/06/2017 17645 TKR Total Knee Replacement Completed 02/06/201726248 TKR Total Knee Replacement Completed 02/06/201755527 TKR Total Knee Replacement Completed 11/09/201640131 Inject Tendon Sheath Or Ligament Aponeurosis Eg Plantar Completed Fascia 05/11/2016 Inject/Drain Joint/Bursa Major W/O US Completed 04/29/2016 Inject/Drain Joint/Bursa Major W/O US Completed 04/21/2016 Inject/Drain Joint/Bursa Major W/O US Completed 07/24/2015 Inject/Drain Joint/Bursa Major W/O US Completed Encounters Type Date Location Provider Dx Diagnosis Office Visit 09/19/2018 Spine Navigator Yamileth Hanh, M51.37 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 knee Office Visit 06/07/2017 Orthopedic Codie M70.51 Other bursitis of 2:00p Services Of MEHREEN Walsh knee, right knee C.M.A. M75.51 Bursitis of right shoulder Office Visit 11/09/2016 Daysi Mejia M17.0 Bilateral primary 4:00p Services Of Nicole Mansfield osteoarthritis of C.M.A. knee M75.21 Bicipital tendinitis, right shoulder G57.12 Meralgia paresthetica, left lower limb Office Visit 05/19/2016 Orthopedic Lissa M17.0 Bilateral primary 4:00p Services Of RILEY Graves osteoarthritis of C.M.A. knee Office Visit 03/02/2016 Orthopedic Lissa Jaramillo7.11 Unilateral primary 9:20a Services Of RILEY Graves osteoarthritis, C.M.A. right knee M17.12 Unilateral primary osteoarthritis, left knee Office Visit 01/20/2016 Daysi Mejia M17.0 Bilateral primary 9:30a Services Of Nicole Mansfield osteoarthritis of C.M.A. knee Office Visit 11/12/2015 Orthopedic Roberto S43.421D Sprain of right 2:00p Services Of Nicole Mansfield rotator cuff C.M.A. capsule, subsequent encounter M19.011 Primary osteoarthritis, right shoulder Office Visit 09/02/2015 9:40a Orthopedic Sarai S43.421D Sprain of right Services Of MELANI Gregory rotator cuff C.M.A. capsule, subsequent encounter Office Visit 06/26/2015 9:30a Orthopedic Roberto 840.4 Sprains & Services Of Nicole Mansfield Strains Rotator C.M.A. Cuff (Capsule) 718.88 Derangement Joint Other Not Elsewhere Class Spec Sites 715.91 Osteoarthrosis Unspec Genlzd Or Localized Shoulder 840.6 Sprains & Strains Supraspinatus (Muscle)(Tendon) 726.12 Tenosynovitis Bicipital Plan of Treatment Future Appointment(s):11/23/2018 11:15 am - Roberto Mansfield M.D. at [facility] AT Tlvguwqk90/13/2019 2:00 pm - Charlotte Dee MD at [facility] Tappieidvb37/14/2019 10:45 am - MEHREEN Banks at [facility]10/22/2018 10:45 am - Roberto Mansfield M.D. at [facility]10/17/2018 - Roberto Mansfield M.D.M17.11 Unilateral primary osteoarthritis , right kneeNew Medication:Oxycodone HCL 5 mg - one to two tablets every 4-6 hours as needed for painColace 100 mg - one tablet twice daily post- operativelyCoumadin 2 mg - 1-3 tablets orally as prescribed post-operatively at 5pmFollow up:Follow up: 1 month post-op shoulder injection at next visit
--- OUTSIDE RECORDS SUMMARY | 2018-10-22 08:24 | XMS REPORT | Continuity of Care Document ---
:1955 External Reference #:[id number] Author Name Gracie Bedoya Care Team Providers Name Role Phone Dayan Esquivel FNP Care Team Information Risk Prevention Engineer Unavailable Emily Mcknight F.N.P. Primary Care Physician Unavailable Payers Type Date Identification Numbers Payment Provider Subscriber Policy Number: [id number] [employer] Andrew Sinclair Group Number: [id number] [address] PayID: [id number] [place] [address] Advance Directives Description No Information Available Problems [...] 06/07/2017 Disorder of bursa of shoulder region Codie Wellcally, PA Active Onset: 06/07/2017 Enthesopathy of knee Codie Wellings, PA Active Onset: 03/01/2017 Arthroplasty of knee Codie Wellings, PA Active Family History Date Family Member(s) Problem(s) Comments General Heart Disease General Cancer Siblings 2 Social History Type Date Description Comments Sex Unknown Marital Status Single Lives With Alone Occupation Retired Accounting ETOH Use Denies alcohol use Tobacco Use Start: Unknown End: Patient is a former Quit 6 weeks Unknown smoker Recreational Drug Use Denies Drug Use Smoking Status Reviewed: 09/19/18 Patient is a former Quit 6 weeks smoker Exercise Type/Frequency Does not exercise Allergies, Adverse Reactions, Alerts Date Description Reaction Status Severity Comments 06/24/2015 Penicillin Active Medications Medication Date Status Form Strength Qnty SIG Indications Ordering Provider Percocet 01/27 Active Tablets 5-325mg 60tab 1 -2 tabs by s mouth every 6 Shyla, hours as M.D. needed pain Vitamin D3 Super Active Tablets 2000Unit 1 by mouth Unknown Strength /0000 every day Lisinopril Active Tablets 20mg 1 by mouth Unknown /0000 every day Pantoprazole Active Tablets 40mg 1 by mouth Unknown Sodium /0000 DR every day Citalopram Active Tablets 40mg Take One Unknown Hydrobromide /0000 Tablet By Mouth Every Day Trazodone HCL Active Tablets 50mg Take 1 2 Unknown /0000 Tablets By Mouth AT Bedtime Coumadin 01/27 Hx Tablets 2mg 45tab take 1-3 tabs s at dinnertime Shyla, - as directed M.D. 07/13 by vns - not take this medication prior to surgery Colace 01/27 Hx Capsules 100mg 90cap 1 tab by s mouth up to Shyla, - three times a M.D. 09/04 day as needed constipation Meloxicam 09/02 Hx Tablets 15mg 30tab 1 tab po s daily Shyla, - M.D. 09/04 Meloxicam 06/26 Hx Tablets 15mg 30tab take one s tablet by Shyla, - mouth every M.D. 11/11 day as needed /2015 Prednisone Hx Tablets 20mg 20mg daily Unknown /0000 - 05/26 Ergocalciferol Hx Capsules [id number] 1 tab by Unknown /0000 mouth every - week 05/26 Cyclobenzaprine Hx Tablets 5mg 1 tablet by Unknown HCL /0000 mouth three - times a day 05/26 as needed /2014 Percocet Hx Tablets 5-325mg 1-2 by mouth Unknown every 4 to 6 - hours as 05/26 needed pain Chantix Hx Tablets 1mg 1 tab by Unknown Continuing mouth twice a Jose - day x 11 . Escitalopram Hx Tablets 20mg 1 by mouth Unknown every day - 01/08 Chantix Hx Tablets 1mg take one tablet by - mouth twice a Lexapro Hx - 06/06 Mobic Hx - 07/13 Medications Administered in Office Medication Date Status Form Strength Qnty SIG Indications Ordering Provider Depomedrol Administered Injection Roberto 40MG Kenneth Mansfield M.D. Depomedrol Administered Injection Roberto 40MG Kenneth Mansfield M.D. Celestone 3 Administered Injection Roberto mg and 3mg Kenneth Mansfield M.D. Hyaluron Or Administered Injection Lissa Derivative,Or yris Riojas,For ANP-C Intra-Articul ar Inj Per Dose Hyaluron Or Administered Injection Lissa Derivative,Or yris Riojas,For ANP-C Intra-Articul ar Inj Per Dose Hyaluron Or Administered Injection Lissa Derivative,Or yris Riojas,For ANP-C Intra-Articul ar Inj Per Dose Hyaluron Or Administered Injection Lissa Derivative,Or yris Riojas,For ANP-C Intra-Articul ar Inj Per Dose Hyaluron Or Administered Injection Jessie Derivative,Or NEYDA Rodriguez,For Intra-Articul ar Inj Per Dose Hyaluron Or Administered Injection Jessie Derivative,Or NEYDA Rodriguez,For Intra-Articul ar Inj Per Dose Depomedrol Administered Injection Lissa 80MG RILEY Lovell Immunizations Description No Information Available Vital Signs Date Vital Result Comment 09/19/2018 2:01pm Height 63 inches 5'3" Weight [...] Date Facility Test Result H/L Range Note Inr/Protime 03/02/2017 [facility] Inr 1.72 High 0.89-1.11 1 [place] [address] [phone] Inr/Protime 02/27/2017 [facility] Inr 1.95 High 0.89-1.11 2 [place] [address] [phone] Urinalysis Profile 01/27/2017 [facility] Urine Color Yellow N [address] [place] [address] [phone] Urine Appearance Cloudy N Urine Specific [place] 1.020 N 1.010-1.030 Urine pH 6.0 N [...] Present Abnormal Absent CBC No Diff 01/27/2017 [facility] White Blood 6.4 10^3/uL N 3.5-10.[address] [place] [address] [phone] Red Blood Count 4.96 10^6/uL N 4.0-5.4 Hemoglobin 14.0 g/dL N 12.0-16.0 Hematocrit 43 % N 35-47 Mean Corpuscular Volume 86 fL N 80-97 Mean Corpuscular Hemoglobin 28 pg N 27-31 Mean Corpuscular HGB Conc 33 g/dL N 31-36 Red Cell Distribution Width 15 % N 10.5-15 Platelet Count 217 10^3/uL N 150-450 Mean Platelet Volume 9 um3 N 7.4-10.4 Inr/Protime 01/27/2017 [facility] Inr 0.96 N 0.89-1.[address] [place] [address] [phone] Laboratory test 01/27/2017 [facility] Partial 31.8 seconds N 26.0-36.[address] [place] [address] PTT [phone] Type & Screen 01/27/2017 [facility] Patient O Negative N [address] [place] [address] [phone] Antibody Screen NEGATIVE N Comp Metabolic Panel 01/27/2017 [facility] Sodium 136 mmol/L N [address] [place] [address] [phone] Potassium 3.8 mmol/L N 3.5-5.0 Chloride 98 [...] 47.5 N >60 Egfr 61.1 N >60 5 Urine Culture And 01/27/2017 [facility] Urine Culture SEE RESULT [address] [place] [address] [phone] FAX 2 PLEASE CALL STAT RESULT TO [phone] PLEASE FAX STAT RESULTS TO [phone] SD [id number] 4 SD [id number] 5 Because ethnic data is not always readily [...] 15-29 5 Kidney failure <15 (or dialysis) 6 SEE RESULT BELOW Name: ISI SINCLAIRJennifer Larose : [address]: Roberto Mansfield MD Acct: [id number] Unit: [id number] AGE: 61 Location: [facility] Re01/27/17 SEX: F Status: REG REF SPEC: [id number] CLARICE: 01/27/17-[address] [facility] [address]: Roberto Mansfield MD REQ: [id number] RECD: 01/27/17 STATUS: COMP _ SOURCE: URINE SPDESC: ORDERED: Urine Culture COMMENTS: [id number] QUERIES: Urine Source: Clean Catch Procedure Result Reported Site Urine Culture Final 01/28/17- 1507 ML No growth of clinically significant organisms * ML - MAIN LAB ([facility]) . END OF REPORT * ML=Testing performed at Main Lab DEPARTMENT OF PATHOLOGY, [address] [place] [address] Marcus Swann M.D. Director [facility] # [id number] Procedures Date Code Description Status 07/12/201781024 Inject/Drain Joint/Bursa Major W/O US Completed 07/12/2017 Inject/Drain Joint/Bursa Major W/O US Completed 02/06/201738001 TKR Total Knee Replacement Completed 02/06/201726758 TKR Total Knee Replacement Completed 02/06/201702969 TKR Total Knee Replacement Completed 11/09/201685048 Inject Tendon Sheath Or Ligament Aponeurosis Eg Plantar Completed Fascia 05/11/201668409 Inject/Drain Joint/Bursa Major W/O US Completed 04/29/201625748 Inject/Drain Joint/Bursa Major W/O US Completed 04/21/201614642 Inject/Drain Joint/Bursa Major W/O US Completed 07/24/201500754 Inject/Drain Joint/Bursa Major W/O US Completed Encounters Type Date Location Provider Dx Diagnosis Office Visit 09/05/2018 Orthopedic Roberto Mansfield, M17.11 Unilateral primary 1:00p [facility] osteoarthritis, right knee Office Visit 06/07/2017 Orthopedic Codie Walsh, M70.51 Other bursitis of 2:00p [facility] knee, right knee M75.51 Bursitis of right shoulder Office Visit [...] osteoarthritis, left knee Office Visit 01/20/2016 Daysi Jaramillo7.0 Bilateral primary 9:30a [facility] Mansfield [...] 726.12 Tenosynovitis Bicipital Plan of Treatment Future Appointment(s):10/22/2018 10:45 am - MEHREEN Banks at [facility]10/10/2018 2:15 pm - Yamileth Schafer PA-C at [facility]10/22/2018 9:00 am - Charlotte Dee MD at [facility] Utaimcyrdz04/ 14/2019 10:45 am - Roberto Mansfield M.D. at [facility]2018 2:45 pm - Roberto Mansfield M.D. at [facility]09/19/2018 - MEHREEN Herrera-CM51.37 Other intervertebral disc degeneration, lumbosacral regionFollow up:after imaging
--- OUTSIDE RECORDS SUMMARY | 2018-10-22 08:24 | XMS REPORT | Continuity of Care Document ---
:1955 External Reference #:[id number] Author Name Gracie Bedoya Care Team Providers Name Role Phone Emily Mcknight F.N.P. Primary Care Physician Unavailable Payers Type Date Identification Numbers Payment Provider Subscriber Policy Number: [id number] [employer] Andrew Sinclair Group Number: [id number] [address] PayID: [id number] [place] [address] Advance Directives Description No Information Available Problems [...] 10/17 Active Capsules 100mg 60cap one tablet s twice daily Shyla, post-operativ M.D. hyacinth Coumadin 10/17 Active Tablets 2mg 60tab 1-3 tablets s orally as Shyla, prescribed M.D. post-operativ hyacinth at 5pm Symbicort 10/09 Active Aerosol 160-4.5mc 2 puff twice g/Act a day Spiriva Respimat 10/09 Active Aerosol 2.5mcg/Ac 2 puffs every t day Vitamin D3 Super Active Tablets [...] 30tab 1 tab po s daily Kamala Mansfield M.DGisele 09/04 Meloxicam 06/26 Hx Tablets 15mg 30tab take one s tablet by Shyla, - mouth every M.D. 11/11 day as needed /2015 Prednisone Hx Tablets 20mg 20mg daily Unknown /0000 - 05/26 Ergocalciferol Hx Capsules [id number] 1 tab by Unknown /0000 mouth every - week 05/26 Cyclobenzaprine Hx Tablets 5mg 1 tablet by Unknown HCL /0000 mouth three - times a day 05/26 as needed /2014 Percocet Hx Tablets 5-325mg 1-2 by mouth Unknown /0000 every 4 to 6 - hours as 05/26 needed pain /2014 Chantix Hx Tablets 1mg 1 tab by [...] 3 Administered Injection Roberto mg and 3mg 017 Nicole Mansfield Hyaluron Or Administered Injection Lissa Derivative,Or yris Riojas,For ANP-C Intra-Articul ar Inj Per Dose Hyaluron Or Administered Injection Lissa Derivative,Or 016 yris Graves,For ANP-C Intra-Articul ar Inj Per Dose Hyaluron Or Administered Injection Lissa Derivative,Or 016 Star, thovisc,For ANP-C Intra-Articul ar Inj Per Dose Hyaluron [...] Result H/L Range Note Urinalysis Profile 10/12/2018 [facility] Urine Color Yellow [address] [place] [address] [phone] Urine Appearance Clear Urine Specific [place] 1.018 N 1.010-1.030 Urine pH 5.0 N 5-9 Urine Urobilinogen Negative Negative Urine Ketones Negative Negative Urine Protein Negative Negative Urine Leukocytes Negative Negative Urine Blood Negative Negative Urine Nitrite Negative Negative Urine Bilirubin Negative Negative Urine Glucose Negative Negative Inr/Protime 10/12/2018 [facility] Inr 0.97 N 0.77-1.02 [address] [place] [address] [phone] CBC Auto Diff 10/12/2018 [facility] White Blood 6.0 10^3/uL N 3.5-10.[address] [place] [address] [phone] Red Blood Count 4.51 10^6/uL N 4.00-5.40 [...] Cells % 0.1 Type & Screen 10/12/2018 [facility] Patient Blood Type O Negative [address] [place] [address] [phone] Antibody Screen NEGATIVE Comp Metabolic Panel 10/12/2018 [facility] Sodium 140 mmol/L N 135-[address] [place] [address] [phone] Potassium 4.2 mmol/L N 3.5-5.0 Chloride 103 [...] 62.7 >60 1 Urine Culture And 10/12/2018 [facility] Urine SEE RESULT [address] [place] [address] [phone] Inr/Protime 03/02/2017 [facility] Inr 1.72 High 0.89- [address] 1[address]11 [place] [address] [phone] Inr/Protime 02/27/2017 [facility] Inr 1.95 High 0.89- [address] 1[address]11 [place] [address] [phone] Urinalysis Profile 01/27/2017 [facility] Urine Color Yellow N [address] [place] [address] [phone] Urine Appearance Cloudy N Urine Specific [place] 1.020 N 1.010-1.030 Urine pH 6.0 N [...] Present Abnormal Absent CBC No Diff 01/27/2017 [facility] White Blood 6.4 10^3/uL N 3.5-10.[address] [place] [address] [phone] Red Blood Count 4.96 10^6/uL N 4.0-5.4 Hemoglobin 14.0 g/dL N 12.0-16.0 Hematocrit 43 % N 35-47 Mean Corpuscular Volume 86 fL N 80-97 Mean Corpuscular Hemoglobin 28 pg N 27-31 Mean Corpuscular HGB Conc 33 g/dL N 31-36 Red Cell Distribution Width 15 % N 10.5-15 Platelet Count 217 10^3/uL N 150-450 Mean Platelet Volume 9 um3 N 7.4-10.4 Inr/Protime 01/27/2017 [facility] Inr 0.96 N 0.89-1.[address] [place] [address] [phone] Laboratory test 01/27/2017 [facility] Partial 31.8 seconds N 26.0-36.3 [address] [place] [address] PTT [phone] Type & Screen 01/27/2017 [facility] Patient O Negative N [address] [place] [address] [phone] Antibody Screen NEGATIVE N Comp Metabolic Panel 01/27/2017 [facility] Sodium 136 mmol/L N 133-[address] [place] [address] [phone] Potassium 3.8 mmol/L N 3.5-5.0 Chloride 98 [...] N >60 7 Urine Culture And 01/27/2017 [facility] Urine Culture SEE RESULT [address] [place] [address] [phone] 1 Because ethnic data is not always [...] [address]: Roberto Mansfield MD Acct: [id number] Unit: [id number] AGE: 63 Location: PAT Re10/12/18 SEX: F Status: REG REF SPEC: [id number] CLARICE: 10/12/18-[address]: Roberto Mansfield MD REQ: [id number] RECD: 10/12/18 STATUS: KENDAL HIGGINBOTHAM DR: Emily Mcknight RESEARCH RN SPEC _ SOURCE: URINE SPDESC: ORDERED: Urine Culture QUERIES: Urine Source: Clean Catch Procedure Result Reported Site Urine Culture Final 10/13/18- 1630 ML No Growth (<1,000 CFU/mL) * ML - Main Lab . END OF REPORT DEPARTMENT OF PATHOLOGY, [address] [place] [address] Marcus Swann M.D. Director NICOLE # [id number] FAX 4 PLEASE CALL STAT RESULT TO [phone] PLEASE FAX STAT RESULTS TO 5 SD [id number] 6 SD [id number] 7 Because ethnic data is not always [...] [address]: Roberto Mansfield MD Acct: [id number] Unit: [id number] AGE: 61 Location: [facility] Re01/27/17 SEX: F Status: REG REF SPEC: [id number] CLARICE: 01/27/17-[address]: Roberto Mansfield MD REQ: [id number] RECD: 01/27/17 STATUS: COMP _ SOURCE: URINE SPDESC: ORDERED: Urine Culture COMMENTS: [id number] [id number] QUERIES: Urine Source: Clean Catch Procedure Result Reported Site Urine Culture Final 01/28/17- 1507 ML No growth of clinically significant organisms * ML - MAIN LAB ([facility]) . END OF REPORT * ML=Testing performed at Main Lab DEPARTMENT OF PATHOLOGY, [address] [place] [address] Marcus Swann M.D. Director [facility] # [id number] Procedures Date Code Description Status 07/12/2017 79471 Inject/Drain Joint/Bursa Major W/O US Completed 07/12/201751674 Inject/Drain Joint/Bursa Major W/O US Completed 02/06/2017 50918 TKR Total Knee Replacement Completed 02/06/201734449 TKR Total Knee Replacement Completed 02/06/201704737 TKR Total Knee Replacement Completed 11/09/201611640 Inject Tendon Sheath Or Ligament Aponeurosis Eg Plantar Completed Fascia 05/11/2016 Inject/Drain Joint/Bursa Major W/O US Completed 04/29/2016 Inject/Drain Joint/Bursa Major W/O US Completed 04/21/2016 Inject/Drain Joint/Bursa Major W/O US Completed 07/24/2015 Inject/Drain Joint/Bursa Major W/O US Completed Encounters Type Date Location Provider Dx Diagnosis Office Visit 09/19/2018 [facility] Yamileth Schafer, M51.37 Other intervertebral 2:00p Of [facility] disc degeneration, lumbosacral region Office Visit 09/05/2018 Orthopedic Clint Garcia7.11 Unilateral primary 1:00p Services [facility] osteoarthritis, [...] osteoarthritis of [facility] knee Office Visit 11/12/2015 Daysi Mejia S43.421D Sprain of right 2:00p Services Of [...] Roberto Mansfield M.D. at [facility] AT Xjwmljkz73/13/2019 2:00 pm - Charlotte Dee MD at [facility] Dqpqsloddf78/14/2019 10:45 am - MEHREEN Banks at Orthopedic [...]
[2018-10-22] MEDS ORDERED: Tranexamic Acid 1,000 MG in NS 0.9% 50 ML IV ONE (08:30)
[2018-10-22] MEDS ORDERED: Lidocaine 2% PF * 5 ML VIAL ONE (10:05)
[2018-10-22] MEDS ORDERED: Bupivacaine-MPF SPINAL* 7.5 MG/ML - 2ML AMP ONE (10:05)
[2018-10-22] MEDS ORDERED: Midazolam* 1 MG/ML 2 ML VIAL (2 MG) ONE (10:06)
[2018-10-22] MEDS ORDERED: fentaNYL* 50 MCG/ML 2 ML VIAL (100 MCG VIAL) ONE ×2 (10:06→17:04)
[2018-10-22] MEDS ORDERED: Propofol* 500 MG/50 ML BTL ONE ×2 (10:12→13:44)
[2018-10-22] MEDS ORDERED: Dexamethasone IV* 4 MG/ML 1 ML (4 MG) ONE (10:30)
[2018-10-22] MEDS ORDERED: Buffered Lidocaine 1% SYRIN* 1 ML/SYRINGE ONE (10:30)
[2018-10-22] MEDS ORDERED: Clindamycin 900 MG/D5W BAG(*) 900 MG/50 ML BAG IVPB ONE (10:30)
[2018-10-22] MEDS ORDERED: Famotidine IV* 10 MG/ML 2 ML (20 mg) ONE (10:30)
[2018-10-22] MEDS ORDERED: ROPIVACAINE 5 MG/ML 30 ML BTL (0.5%) ONE (11:09)
[2018-10-22] MEDS ORDERED: Lidocaine 1%* 5 ML VIAL ONE (11:09)
[2018-10-22] MEDS ORDERED: Bupivacaine 0.5% W/EPI SDV* 30 ML VIAL ONE (12:18)
[2018-10-22] MEDS ORDERED: Ondansetron INJ* 2 MG/ML VIAL IV PRN ×2 (14:00→15:39)
[2018-10-22] MEDS ORDERED: oxyCODONE TAB* 5 MG TAB PO PRN (14:00)
[2018-10-22] MEDS ORDERED: Naloxone* 0.4 MG/ML 1 ML VIAL IV PRN (14:00)
[2018-10-22] MEDS ORDERED: Morphine VIAL* 4 MG/ML VIAL (1 ml vial) IV PRN (14:00)
[2018-10-22] MEDS ORDERED: Ketorolac INJ* 30 MG/ML 1 ML VIAL IV PRN (14:00)
[2018-10-22] MEDS ORDERED: Acetaminophen IV 1GM/100ML * 1,000 MG/100 ML VIAL IVPB ONE (14:00)
[2018-10-22] MEDS ORDERED: Magnesium Hydroxide LIQ* 30 ML UDC PO PRN (15:28)
[2018-10-22] MEDS ORDERED: diPHENhydraMINE PO* 25 MG PO PRN (15:39)
[2018-10-22] MEDS ORDERED: diPHENhydraMINE IV* 50 MG/ML 1 ml VIAL (BENADRYL) IV PRN (15:39)
[2018-10-22] MEDS ORDERED: Cyclobenzaprine TAB* 10 MG PO PRN (15:39)
[2018-10-22] MEDS ORDERED: Ondansetron ODT TAB* 4 MG PO PRN (15:39)
[2018-10-22] MEDS ORDERED: hydrALAZINE IV* 20 MG/ML VIAL ONE (16:27)
[2018-10-22] MEDS ORDERED: hydrALAZINE IV* 20 MG/ML VIAL IV SLOW PU PRN (16:46)
[2018-10-22] MEDS ORDERED: Albuterol/Ipratropium NEB.SOL* Albuterol 2.5 MG/Ipratropium 0.5 MG 3 ML INH PRN (16:59)
[2018-10-22] MEDS ORDERED: Acetaminophen IV 1GM/100ML * 100 ML ONE (17:04)
[2018-10-22] MEDS ORDERED: Ketorolac INJ* 30 MG/ML 1 ML VIAL ONE (17:04)
[2018-10-22] MEDS: fentaNYL* 50 MCG/ML 2 ML VIAL (100 MCG VIAL) IV PRN ×2 (17:16→17:34)
[2018-10-22] MEDS: D5W 1/2 NS 1000 ML BAG* 1,000 ML IV SCH (18:35)
[2018-10-22] MEDS ORDERED: Clindamycin 600 MG IVPREMIX(* 600 MG/50 ML SDV IV SCH ×2 (21:00→22:00)
--- NOTE | 2018-10-22 21:08 | CONS ---
CC: Dr. Mansfield; MATT Garibay.* CONSULTATION REPORT: DATE OF CONSULT: 10/22/18 PRIMARY CARE PHYSICIAN: MATT Garibay. REQUESTING PHYSICIAN: Dr. Mansfield from Orthopedic Surgery. REASON FOR CONSULT: Hypertension. HISTORY OF PRESENT ILLNESS: Kaelyn Sinclair is a 63-year-old female with history of asthma/early COPD and hypertension, who presented to the hospital today for elective right knee replacement. Postoperatively, he had pressures went into 170s. The patient stated that preoperatively she was asked not to take her lisinopril for 3 days. Otherwise, the patient's right knee is tingling and she has no other complaints. Dr. Mansfield asked the hospitalist service to see the patient in consultation in regard to management of the patient's hypertension. PAST MEDICAL HISTORY: 1. History of mild COPD/asthma. 2. Hypertension. 3. Obstructive sleep apnea. The patient does not wear the CPAP. 4. Depression. 5. History of irritable bowel syndrome. 6. Osteoarthritis status post left knee replacement in the past and current knee replacement status on the right. 7. History of gastroesophageal reflux disease. PAST SURGICAL HISTORY: History of appendectomy and left knee arthroscopy remotely and right knee arthroscopy today. MEDICATIONS AT HOME: 1. Trazodone 50 mg at bedtime. 2. Spiriva 1 inhalation daily. 3. Lisinopril 20 mg at bedtime. 4. Celexa 40 mg at bedtime. 5. Vitamine D3 5000 units q.p.m. 6. Symbicort 160/4.5 two puffs inhalation b.i.d. ALLERGIES: NAPROXEN and PENICILLIN. FAMILY HISTORY: Reviewed and noncontributory. SOCIAL HISTORY: The patient lives alone. She used to work at [employer] in [employer]. She has 50- to 27-upov-huri smoking and she quit smoking 3 years ago. She denies any drug or alcohol use. As her surrogate, she named her female friend, Vera Paulino. REVIEW OF SYSTEMS: Please see history of present illness. The patient has no problems with headache, although her blood pressures had been postoperatively 170s and she required treatment with hydralazine. She denies any blurry vision , chest pain, or shortness of breath. Her right knee is tingling, but she denies postoperative pain. Other remaining 12 systems were reviewed with the patient and were otherwise negative. PHYSICAL EXAM: Blood pressure of 173/83, heart rate of 71 and regular, respiratory rate 14, oxygen saturation 97% on 3 L of oxygen via nasal cannula, temperature 97.7. General: The patient is a very pleasant 63-year-old female, who is in no acute distress. Alert, awake, and oriented x3. HEENT: Head atraumatic, normocephalic. Eyes: Pupils equal, reactive to light and accommodation. Oropharynx is clear. Mucosa moist. Neck: Supple. No JVD. No bruits bilaterally. Cardiovascular: Regular rate and rhythm. No murmur. Respiratory: Clear to auscultation bilaterally. Abdomen: Soft, nontender. Bowel sounds present in all 4 quadrants. Extremities: There is no edema. Pulses 2+ bilaterally. No clubbing or cyanosis. On the right lower extremity is the postsurgical dressing and Cryo unit is applied to the right knee. Neuro Evaluation: Speech clear. Cranial nerves II through XII grossly intact. Motor strength is grossly 5/5 bilaterally. The right leg mobility is limited and not fully examined due to postoperative state. On evaluation of the skin, the patient's postoperative area was not examined due to sterile dressings applied. Psychiatric Evaluation: Pleasant and cooperative with evaluation. Oriented x3 with no evidence of anxiety or depression. DIAGNOSTIC STUDIES/LAB DATA: The patient does lack current laboratory data. From review of the patient's laboratory data from the past, the patient has had increased creatinine in the range of 1.2 in the recent past. Once again, I do not have the most recent level. ASSESSMENT AND PLAN: 1. In regard to the patient's hypertension, the patient is going to be restarted on lisinopril tonight and hydralazine is going to be utilized as needed. Our service will follow up in the morning. 2. In regard to the patient's asthma/chronic obstructive pulmonary disease, the patient's medications are going to be continued. I will also institute DuoNeb on a p.r.n. basis. For the time being, the patient is on oxygen supplementation. Incentive spirometry is going to be ordered by Neurosurgery. 3. In regard to the patient's DVT prophylaxis. The patient was already placed by the surgical service on heparin subcu. 4. The patient has a history of mild chronic kidney disease and we will obtain basic metabolic panel too, follow up on that tomorrow. 5. The patient's code status is full code and her surrogate is her friend as mentioned above. TIME SPENT: Approximately 55 minutes was spent in consultation of this patient , more than half that time was spent ufed-op-agia with the patient during the interview and physical exam. [id number]/[facility] #: [id number] MTDD
[2018-10-22] MEDS: traZODone TAB* 50 MG TAB PO SCH (21:39)
[2018-10-22] MEDS: Citalopram TAB* 20 MG PO SCH (21:39)
[2018-10-22] MEDS: Docusate CAP* 100 MG PO SCH (21:39)
[2018-10-22] MEDS: Lisinopril TAB* 10 MG PO SCH (21:39)
[2018-10-22] MEDS: Mometasone/Formoter 200/5 MDI INH SCH (21:39)
[2018-10-22] MEDS: Magnesium Hydroxide LIQ* 30 ML UDC PO SCH (21:39)
--- NOTE | 2018-10-22 22:16 | OP ---
DATE OF OPERATION: 10/22/18 - ROOM #343 DATE OF : 55 ATTENDING SURGEON: Roberto Mansfield MD RADIOGRAPHY TECHNICIAN: Emily Fischer RPA ANESTHESIA: Spinal, regional, local, and sedation. PRE-OP DIAGNOSIS: Osteoarthritis, right knee. POST-OP DIAGNOSIS: Osteoarthritis, right knee. OPERATIVE PROCEDURE: Right total knee arthroplasty. ESTIMATED BLOOD LOSS: 75 cc. COMPLICATIONS: None. HARDWARE: [employer] #6 narrow femur, #4 tibia with 9 mm high congruency polyethylene insert, 32 mm all-polyethylene patellar button. INDICATIONS: Ms. Sinclair is a 63-year-old female who had trouble with both her knees for many years now. She underwent a left total knee arthroplasty and has done well with that. She is very interested in getting the right knee done and the right knee has become more and more painful and limiting. Risks of surgery such as infection, scar formation, stiffness, DVT, pulmonary embolism, hardware failure, and continued pain were some of the risks discussed. She had been declared medically optimized and wished to proceed. DESCRIPTION OF PROCEDURE: Emily Fischer was present for all aspects of the case from positioning to draping, to the approach, to placing the instruments, and closure. The case could not have been done without an machine operator assistant. The patient was brought to the OR after a block had been placed in the holding area. Spinal anesthesia was introduced and a Bailey catheter was placed. Tourniquet was placed over the proximal right thigh and was used during the case. Total tourniquet time would be approximately 60 minutes. Right knee was prepped and then draped. Esmarch was used to exsanguinate the leg and the tourniquet was raised. Midline incision was made centered about the patella and carried about 6 cm above the superior pole of the patella and the incision was carried downwards towards the medial side of the tibial tubercle. Incision was carried down through the skin and subcutaneous fat. Small bleeders encountered were ligated using electrocautery. Extensor mechanism was exposed and a sharp parapatellar arthrotomy was made. Gush of clear yellowish joint fluid was encountered upon performing the arthrotomy. Soft tissues were sharply elevated from the medial side of the tibia and the fat pad were sharply excised. Patella measured approximately 18 mm in thickness and approximately 7 mm were resected leaving 10 to 11 mm of patella. Patella was then easily subluxated laterally and the knee was flexed up. Step drill was used to open the femoral canal and an intramedullary guide was placed. Distal femoral alignment guide was placed against the condyles and then the distal femoral cutting guide was pinned into place. Distal femoral cut was taken and appeared a nice cut was obtained. The 5-degree guide was used. Femur was sized and she sat for a 6. Pins were placed and the 6 block was then placed. It appeared that with the superior cut was taken, it was clear I was a little bit too superior. Recutter was placed and holes were moved 2 mm inferior and cutting guide was replaced. At this time with a cut, I was almost smooth along the top side and I thought this would be good as moving it down by another notch would result in notching the femur. Posterior cut was taken, as were the chamfer cuts. Attention was turned to the tibia. Extramedullary alignment guide was placed and adjusted until the ning appeared parallel to the shaft of the tibia. Cutting guide was adjusted for a height from 9 mm off to none one lateral side and then pinned into place. Proximal tibial cut was taken. Bone and meniscus were then also removed. Posterior capsule was injected with 10 cc on the medial side and 10 cc on the lateral side. 9 spacer block was placed and she was nice at 90 degrees of flexion and similarly with full extension, she also sat quite nicely. Guide ning was dropped and it could be seen where she pointed nicely towards the base of the second metatarsal. Proximal tibia was sized and initially a 5 was placed, but it could be seen where I had very specific overhang; 4 was therefore placed. Pins were placed and proximal tibia was drilled and then punched. Pins were removed and attention was returned to the femur. Femoral trial was placed and the notch reamer was then slid into place and the notch was reamed first in the inferior and then superior position. cloth cutter was then impacted in the superior and inferior positions as well. Notch safety piece was then placed and tibia with a 9 mm insert was also placed. She came out nicely until full extension with stability and easily flexed to about 110 degrees. She was very specifically limited by her body habitus. The knee itself maneuvered well and was nice and stable. Patella tracking was perfect. Patella sized inferior to superior at a 32, but from medial to lateral we could have gone a little bit wider, but I decided to stay with the 32. Holes were drilled and trial was snapped into place. It showed the same wonderful motion and stability. Trial instrumentation was then removed and the knee was copiously pulse lavaged. Cement was being prepared. Tibia followed by femur and patella were all cemented into place. Excess cement was removed and the cement was allowed to harden. Once the cement had hardened, she was again trailed with the 9 and had the same wonderful motion and stability. 9 high flexion polyethylene was placed as this is compatible with the 6 as apposed to the plane which would be an off label use. Polyethylene was snapped into place. Knee was copiously pulse lavaged again. Knee was also searched for additional cement and a few small pieces had been found. Last 10 cc of local was injected into the lateral gutter. Knee was again copiously pulse lavaged and parapatellar arthrotomy was repaired using interrupted #1 Vicryl sutures. The tourniquet had been let down while the cement was drying as the blood started to look quite dark and venous and this actually helped decrease the blood loss. With the arthrotomy closed, knee was again copiously pulse lavaged. Subcutaneous tissues were repaired in layers using 2-0 Vicryl sutures. Skin was closed using bandar. Sterile dressing and a Cryo/Cuff were applied in the OR. The patient was than awakened stable and transferred to the recovery room. [id number]/SONJA #: [id number] ANNIE
[2018-10-22] MEDS: oxyCODONE TAB* 5 MG TAB PO PRN (22:39)
[2018-10-22] MEDS: Clindamycin 600 MG/D5W BAG(*) 600 MG/50 ML BAG IV SCH (22:39)
[2018-10-23] MEDS: Acetaminophen TAB* 325 MG PO SCH ×3 (01:26→17:30)
[2018-10-23] MEDS: D5W 1/2 NS 1000 ML BAG* 1,000 ML IV SCH (04:48)
[2018-10-23 05:22] LABS: Hematocrit 34 % (35-47); Hemoglobin 11.1 g/dl (12.0-16.0); Mean Platelet Volume 8.4 fL (7.4-10.4); Platelet Count 208 10^3/ul (150-450)
[2018-10-23 05:24] LABS: INR 1.02 (0.77-1.02)
[2018-10-23 05:37] LABS: BUN/Creatinine Ratio 14.4 (8-20); Calcium 9.1 mg/dL (8.6-10.3); EGFR Non-African American 53.5 (>60)
[2018-10-23] MEDS: traMADol TAB* 50 MG PO PRN ×3 (06:12→17:31)
[2018-10-23] MEDS: Clindamycin 600 MG/D5W BAG(*) 600 MG/50 ML BAG IV SCH ×2 (06:13→14:00)
--- NOTE | 2018-10-23 08:09 | PN ---
Subjective Date of Service: 10/23/18 Interval History: Pt feels well. Post op pain well controlled. Denies CP, 0 sat 97% on RA Objective Active Medications: Acetaminophen (Tylenol Tab*) 975 mg PO Q8H [facility] Last Admin: 10/23/18 01:26 Dose: 975 mg Albuterol/Ipratropium (Duoneb (Albuterol 2.5 Mg/Ipratropium 0.5 Mg)) 1 neb INH Q4H PRN PRN Reason: SOB/WHEEZING Citalopram Hydrobromide (Celexa Tab*) 20 mg PO BEDTIME [facility] Last Admin: 10/22/18 21:39 Dose: 20 mg Cyclobenzaprine HCl (Flexeril Tab*) 10 mg PO TID PRN PRN Reason: SPASMS Diphenhydramine HCl (Benadryl Iv*) 25 mg IV Q6H PRN PRN Reason: itching Diphenhydramine HCl (Benadryl Po*) 25 mg PO Q6H PRN PRN Reason: itching Docusate Sodium (Colace Cap*) 100 mg PO BID [facility] Last Admin: 10/22/18 21:39 Dose: 100 mg Heparin Sodium (Porcine) (Heparin Vial(*)) 5,000 units SUBCUT Q8HR [facility] Hydralazine HCl (Apresoline Iv*) 5 mg IV SLOW PU Q6H PRN PRN Reason: HTN, SBP >160 Lactated Ringer's (Lactated Ringers 1000 Ml Bag*) 1,000 mls @ 125 mls/hr IV PER RATE [facility] Last Admin: 10/22/18 10:38 Dose: 125 mls/hr Dextrose/Sodium Chloride (D5w 1/2 Ns 1000 Ml Bag*) 1,000 mls @ 100 mls/hr IV PER RATE [facility] Last Admin: 10/23/18 04:48 Dose: 100 mls/hr Clindamycin HCl/Dextrose (Cleocin 600 Mg/50 Ml(*)) 600 mg in 50 mls @ 100 mls/ hr IV Q8H [facility] Stop: 10/23/18 14:59 Last Admin: 10/23/18 06:13 Dose: 100 mls/hr Lisinopril (Prinivil Tab*) 20 mg PO BEDTIME [facility] Last Admin: 10/22/18 21:39 Dose: 20 mg Magnesium Hydroxide (Milk Of Magnesia Liq*) 30 ml PO BID [facility] Last Admin: 10/22/18 21:39 Dose: 30 ml Magnesium Hydroxide (Milk Of Magnesia Liq*) 30 ml PO Q6H PRN PRN Reason: constipation Mometasone Furoate/Formoterol Fumar (Dulera 200/5 Mdi*) 2 puff INH BID [facility]; Protocol Last Admin: 10/22/18 21:39 Dose: 2 puff Morphine Sulfate (Morphine Vial*) 2 mg IV Q2H PRN PRN Reason: PAIN - BREAKTHROUGH Pto:Tiotropium [place] [Spiriva Respimat] 2.5 Mcg 5 mcg INH 1400 [facility] Ondansetron HCl (Zofran Inj*) 4 mg IV Q6H PRN PRN Reason: nausea Ondansetron HCl (Zofran Odt Tab*) 4 mg PO Q6H PRN PRN Reason: NAUSEA Oxycodone HCl (Roxycodone Tab*) 10 mg PO ONCE PRN PRN Reason: SEVERE PAIN Stop: 10/23/18 13:59 Oxycodone HCl (Roxycodone Tab*) 10 mg PO Q4H PRN PRN Reason: PAIN - SEVERE Last Admin: 10/22/18 22:39 Dose: 10 mg Tramadol HCl (Ultram*) 50 mg PO Q6H PRN PRN Reason: PAIN Last Admin: 10/23/18 06:12 Dose: 50 mg Trazodone HCl (Desyrel Tab*) 50 mg PO BEDTIME [facility] Last Admin: 10/22/18 21:39 Dose: 50 mg Vital Signs - 8 hr 10/23/18 10/23/18 10/23/18 01:32 04:09 06:12 Temperature 97.3 F Pulse Rate 73 Respiratory 18 17 17 Rate Blood Pressure 109/48 (mmHg) O2 Sat by Pulse 96 Oximetry 10/23/18 07:48 Temperature Pulse Rate Respiratory 16 Rate Blood Pressure (mmHg) O2 Sat by Pulse Oximetry Oxygen Devices in Use Now: None Appearance: 62 yo F in nAD, AAOx3 Eyes: No Scleral Icterus, PERRLA Ears/Nose/Mouth/Throat: NL Teeth, Lips, Gums, Mucous Membranes Moist Neck: NL Appearance and Movements; NL JVP, Trachea Midline Respiratory: Symmetrical Chest Expansion and Respiratory Effort, Clear to Auscultation Cardiovascular: NL Sounds; No Murmurs; No JVD, RRR Abdominal: NL Sounds; No Tenderness; No Distention Lymphatic: No Cervical Adenopathy Extremities: No Edema, No Clubbing, Cyanosis Skin: No Nodules or Sclerosis, - - R post op knee in cryo unit, post op dressings not removed Neurological: Alert and Oriented x 3, NL Muscle Strength and Tone Result Diagrams: 10/23/18 05:02 10/23/18 05:02 Assess/Plan/Problems-Billing Assessment: 63 yo F with h/o HTN, Asthma/COPD s/p elective R knee replacement - Patient Problems (1) History of total knee arthroplasty Comment: POD 1 doing well, as per ortho (2) HTN (hypertension) Comment: controled, cont lisinopril (3) COPD (chronic obstructive pulmonary disease) Comment: cont inhalers, not in exacerbation (4) DVT prophylaxis Comment: HSQ Status and Disposition: Medicine consult will sign off Thank you for the consultation. Please call prn
[2018-10-23] MEDS: Docusate CAP* 100 MG PO SCH ×2 (08:23→21:51)
[2018-10-23] MEDS: Magnesium Hydroxide LIQ* 30 ML UDC PO SCH ×2 (08:23→21:50)
[2018-10-23] MEDS: oxyCODONE TAB* 5 MG TAB PO PRN ×3 (08:24→16:08)
[2018-10-23] MEDS: Mometasone/Formoter 200/5 MDI INH SCH ×2 (08:36→21:52)
--- NOTE | 2018-10-23 09:28 | PN ---
Progress Note - Progress Note Date of Service: 10/23/18 SOAP: Subjective: []Patient seen and examined at bedside. She feels well without CP, SOB, dizziness or nausea. RLE pain is currently 6/10 right after PT, she is progressing well with PT. Anticipates DC to home tomorrow, does not have help at home. Right foot sensation is decreased from baseline though has improved from last night and no associated weakness. Objective: []General: Well appearing, NAD RLE: Right knee dressing CDI. No erythema proximally or distally. DF/PF intact, DP2+, sensation is intact to light touch distally though decreased from baseline throughout the foot. Calves supple and nontender without erythema, edema or palpable cords Assessment: []POD 1 sp Right total knee arthroplasty Plan: []WBAT PT/OT Heparin, coumadin 8 mg today Anticipate decreased sensation of the foot to continue to improve throughout the day as block wears off Plan for D/C tomorrow Vital Signs Temp 98.3 F 10/23/18 07:29 Pulse 75 10/23/18 08:37 Resp 18 10/23/18 08:37 BP 121/51 10/23/18 07:29 Pulse Ox 96 10/23/18 08:37 Intake & Output 10/22/18 10/23/18 10/23/18 18:59 06:59 18:59 Intake Total 2650 1135 Output Total 1000 1475 Balance 1650 -340 Weight 239 lb Intake: IV Fluids 2650 LR 2650 IVPB 55 ABX - CLINDAMYCIN 55 Oral 1080 Output: Bailey 1000 1475 Other: # Bowel Movements 0 Estimated Blood Loss 250 Comment Laboratory Last Values Hgb 11.1 g/dl (12.0-16.0) L 10/23/18 05:02 Hct 34 % (35-47) L 10/23/18 05:02 Plt Count 208 10^3/ul (150-450) 10/23/18 05:02 MPV 8.4 fL (7.4-10.4) 10/23/18 05:02 INR (Anticoag Therapy) 1.02 (0.77-1.02) 10/23/18 05:02 Sodium 137 mmol/L (135-145) 10/23/18 05:02 Potassium 4.0 mmol/L (3.5-5.0) 10/23/18 05:02 Chloride 103 mmol/L (101-111) 10/23/18 05:02 Carbon Dioxide 27 mmol/L (22-32) 10/23/18 05:02 Anion Gap 7 mmol/L (2-11) 10/23/18 05:02 BUN 15 mg/dL (6-24) 10/23/18 05:02 Creatinine 1.04 mg/dL (0.51-0.95) H 10/23/18 05:02 Est GFR ( Amer) 64.8 (>60) 10/23/18 05:02 Est GFR (Non-Af Amer) 53.5 (>60) 10/23/18 05:02 BUN/Creatinine Ratio 14.4 (8-20) 10/23/18 05:02 Glucose 141 mg/dL (70-100) H 10/23/18 05:02 Calcium 9.1 mg/dL (8.6-10.3) 10/23/18 05:02
[2018-10-23] MEDS ORDERED: Heparin VIAL(*) 5000 UNITS/ML VIAL (FIVE THOUSAND) SUBCUT SCH (12:00)
[2018-10-23] MEDS: Heparin VIAL(*) 5000 UNITS/ML VIAL (FIVE THOUSAND) SUBCUT SCH ×2 (14:00→21:51)
[2018-10-23] MEDS ORDERED: TIOTROPIUM BROMIDE 2.5 MCG INH SCH (14:00)
[2018-10-23] MEDS: Morphine VIAL* 4 MG/ML VIAL (1 ml vial) IV PRN ×4 (14:01→21:51)
[2018-10-23] MEDS ORDERED: Warfarin TAB(*) 4 MG PO ONE (17:00)
[2018-10-23] MEDS: Ketorolac INJ* 30 MG/ML 1 ML VIAL IV PUSH SCH (17:37)
[2018-10-23] MEDS: traZODone TAB* 50 MG TAB PO SCH (19:21)
[2018-10-23] MEDS: Lisinopril TAB* 10 MG PO SCH (21:52)
[2018-10-23] MEDS: Citalopram TAB* 20 MG PO SCH (21:52)
[2018-10-24] MEDS: Ketorolac INJ* 30 MG/ML 1 ML VIAL IV PUSH SCH ×3 (00:19→12:01)
[2018-10-24] MEDS: Acetaminophen TAB* 325 MG PO SCH ×2 (01:33→09:43)
[2018-10-24 06:36] LABS: Hematocrit 30 % (35-47); Hemoglobin 10.2 g/dl (12.0-16.0); Mean Platelet Volume 8.4 fL (7.4-10.4); Platelet Count 183 10^3/ul (150-450)
[2018-10-24] MEDS: Heparin VIAL(*) 5000 UNITS/ML VIAL (FIVE THOUSAND) SUBCUT SCH (06:40)
[2018-10-24 06:42] LABS: INR 1.01 (0.77-1.02)
[2018-10-24] MEDS: traMADol TAB* 50 MG PO PRN (08:15)
[2018-10-24] MEDS: Docusate CAP* 100 MG PO SCH (08:17)
[2018-10-24] MEDS: Magnesium Hydroxide LIQ* 30 ML UDC PO SCH (08:18)
[2018-10-24] MEDS: Mometasone/Formoter 200/5 MDI INH SCH (08:31)
--- NOTE | 2018-10-24 09:55 | PN ---
Progress Note - Progress Note Date of Service: 10/24/18 SOAP: Subjective: []Patient seen and examined at bedside. She feels well without CP, SOB, dizziness or nausea. Right knee pain is well controlled. PT goals have been met. Desires DC home. Objective: []General: Well appearing, NAD RLE: Right knee dressing changed, incision CDI. No erythema proximally or distally. DF/PF intact, DP2+, sensation is intact to light touch distally Calves supple and nontender without erythema, edema or palpable cords Assessment: []POD 2 sp Right total knee arthroplasty Plan: []WBAT PT/OT Heparin, coumadin 8 mg today DC home today Vital Signs Temp 98.5 F 10/24/18 07:42 Pulse 85 10/24/18 08:00 Resp 18 10/24/18 08:15 BP 137/68 10/24/18 07:42 Pulse Ox 96 10/24/18 08:00 Intake & Output 10/23/18 10/24/18 10/24/18 18:59 06:59 18:59 Intake Total 1089 660 320 Output Total 500 500 0 Balance 589 160 320 Intake: IV Fluids 559 0 D51/2NS 559 0 IVPB 110 ABX - CLINDAMYCIN 110 Oral 420 660 320 Output: Urine 500 500 0 Other: # Bowel Movements 0 3 Estimated Stool Amount Medium Laboratory Last Values Hgb 10.2 g/dl (12.0-16.0) L 10/24/18 05:58 Hct 30 % (35-47) L 10/24/18 05:58 Plt Count 183 10^3/ul (150-450) 10/24/18 05:58 MPV 8.4 fL (7.4-10.4) 10/24/18 05:58 INR (Anticoag Therapy) 1.01 (0.77-1.02) 10/24/18 05:58 Sodium 137 mmol/L (135-145) 10/23/18 05:02 Potassium 4.0 mmol/L (3.5-5.0) 10/23/18 05:02 Chloride 103 mmol/L (101-111) 10/23/18 05:02 Carbon Dioxide 27 mmol/L (22-32) 10/23/18 05:02 Anion Gap 7 mmol/L (2-11) 10/23/18 05:02 BUN 15 mg/dL (6-24) 10/23/18 05:02 Creatinine 1.04 mg/dL (0.51-0.95) H 10/23/18 05:02 Est GFR ( Amer) 64.8 (>60) 10/23/18 05:02 Est GFR (Non-Af Amer) 53.5 (>60) 10/23/18 05:02 BUN/Creatinine Ratio 14.4 (8-20) 10/23/18 05:02 Glucose 141 mg/dL (70-100) H 10/23/18 05:02 Calcium 9.1 mg/dL (8.6-10.3) 10/23/18 05:02
[2018-10-24 12:45] VITALS: BP 103/57
--- NOTE | 2018-10-26 01:35 | DS ---
DISCHARGE SUMMARY: DATE OF ADMISSION: 10/22/18 DATE OF DISCHARGE: 10/24/18 ATTENDING ORTHOPEDIC PROVIDER: Dr. Roberto Mansfield.* (DICTATED BY MEHREEN ROJO) OPERATIVE PROCEDURE: Right total knee arthroplasty. HISTORY: Ms. Sinclair is a 63-year-old female with years of increasingly severe right knee pain. She failed conservative management and elected to undergo a right total knee arthroplasty. HOSPITAL COURSE: The patient was admitted to [facility] on . She underwent a right total knee arthroplasty without complication. She recovered briefly in the PACU and was transferred to the short stay surgical unit. She was followed by hospitalist service during her stay for history of hypertension with no changes to her home medication. On postop day 1, she was well appearing, in no acute distress. Dressing was clean, dry and intact. Dorsiflexion, plantarflexion intact. DP pulse 2+. Sensation intact to light touch distally. On postop day 2, well appearing, in no acute distress. Dressing was changed. Incision clean, dry and intact. She remained neurovascularly intact distally. Vital Signs: Temperature 98.5, pulse 85, respiratory rate 18, blood pressure 137/68, pulse ox 96%. Lab values: Hemoglobin 10.2, hematocrit 30, INR 1.01. The patient was deemed to be medically and orthopedically stable for discharge home. DISCHARGE MEDICATIONS: Include: 1. Lisinopril 20 mg p.o. at bedtime. 2. Vitamin D3 of 5000 units p.o. q.p.m. 3. Tiotropium bromide 2.5 mcg inhaled every day. 4. Symbicort 160/4.5 two puffs inhale b.i.d. 5. Citalopram 40 mg p.o. at bedtime. 6. Trazodone 50 mg p.o. at bedtime. 7. Docusate 100 mg p.o. b.i.d. 8. Warfarin 2 mg p.o., to take 1 to 2 tablets, daily dose depends on INR. 9. Acetaminophen 975 mg p.o. q.8 hours p.r.n. 10. Aspirin 325 mg p.o. daily, to be taken 1 tab daily until INR has reached the therapeutic level. 11. Tramadol 50 mg p.o. q.4 hours p.r.n., max daily dose of 8. DISCHARGE PLAN: Weightbearing as tolerated. Coumadin dose 8 mg on 10/24/18. Recheck INR for further dosing. Instructions on 10/25/18, take aspirin 325 mg daily in addition to Coumadin until INR is therapeutic between 2 and 3. Pain control, Voltaren 50 mg every 6 hours as needed for pain, max daily dose of 8. Follow up with Dr. Mansfield in 4 weeks. DISPOSITION: Discharged to home. MEHREEN ROJO [id number]/[facility] #: [id number] [facility]
== END 2018-10-24 12:30 | disposition home health service (06) | DRG 470 ==
LOC: AA 08:19 → SSU 18:29
PROVIDERS: ADMIT Orthopaedic Surgery; ATTEND Orthopaedic Surgery
PROC: 0SRC0J9 Replacement of Right Knee Joint with Synthetic Substitute, Cemented, Open Approach (ICD-10-PCS; principal; 2018-10-22 10:15)
DX: M17.11 Unilateral primary osteoarthritis, right knee (principal); M25.461 Effusion, right knee; J44.9 Chronic obstructive pulmonary disease, unspecified; G47.33 Obstructive sleep apnea (adult) (pediatric); F32.9 Major depressive disorder, single episode, unspecified; K58.9 Irritable bowel syndrome, unspecified; K21.9 Gastro-esophageal reflux disease without esophagitis; I12.9 Hypertensive chronic kidney disease with stage 1 through stage 4 chronic kidney disease, or unspecified chronic kidney disease; N18.9 Chronic kidney disease, unspecified; K44.9 Diaphragmatic hernia without obstruction or gangrene; G89.29 Other chronic pain; M54.5 Low back pain; M19.019 Primary osteoarthritis, unspecified shoulder; Z96.652 Presence of left artificial knee joint; Z88.8 Allergy status to other drugs, medicaments and biological substances; Z87.891 Personal history of nicotine dependence; Z82.49 Family history of ischemic heart disease and other diseases of the circulatory system; Z88.0 Allergy status to penicillin; Z80.0 Family history of malignant neoplasm of digestive organs; Z79.01 Long term (current) use of anticoagulants; Z79.82 Long term (current) use of aspirin; Z79.51 Long term (current) use of inhaled steroids
CPT/HCPCS: 36415; 80048; 85014; 85018; 85049; 85610; 88305; 88311; 94640; A9270-GY; J0360; J1100; J1644; J1885; J2250; J2270; J2704; J2795; J3010